=== PATIENT | female | born 1995 | race American Indian/Alaskan Native ===

== ENCOUNTER 2018-02-14 00:27 | Emergency (ER) | payer SELFPAY ==
[2018-02-14] MEDS ORDERED: NACL 0.9% 1000 ML 1,000 ML IV ONE ×2 (00:32→06:10)
[2018-02-14 01:05] LABS: Basophils % (Auto) 0.1 % (0.0-1.8); Eosinophils % (Auto) 0.5 % (0.0-4.3); Hematocrit 42.9 % (30.3-42.9); Hemoglobin 13.9 gm/dl (10.1-14.3); Lymphocytes % (Auto) 9.9 % (13.4-35.0); Mean Corpuscular HGB Conc 32 % (30-34); Mean Corpuscular Hemoglobin 28 pg (28-32); Mean Corpuscular Volume 87 fl (79-97); Monocytes # (Auto) 0.4 K/mm3 (0.0-0.8); Monocytes % (Auto) 3.8 % (0.0-7.3); Platelet Count 232 K/mm3 (140-440); Red Blood Count 4.93 M/mm3 (3.65-5.03); Red Cell Distribution Width 14.7 % (13.2-15.2)
[2018-02-14 01:24] LABS: Alanine Aminotransferase 12 units/L (7-56); BUN/Creatinine Ratio 9; Blood Urea Nitrogen 8 mg/dL (7-17); Calcium 10.2 mg/dL (8.4-10.2); Hemolysis Index 1
[2018-02-14] MEDS ORDERED: TORADOL IV ONE (03:06)
[2018-02-14] MEDS ORDERED: ZOFRAN IV ONE (03:06)
--- NOTE | 2018-02-14 03:12 | Emergency Department Report ---
ED Abdominal Pain HPI - General Chief Complaint: Abdominal Pain Stated Complaint: N/V/D Time Seen by Provider: 02/14/18 02:58 Source: patient Mode of arrival: Ambulatory Limitations: No Limitations - History of Present Illness Initial Comments: Patient is 22 years old female with no significant past medical history. Patient presented to the ER complaining of generalized abdominal pain, crampy nature associated with nausea vomiting and watery diarrhea. Patient stated that her symptoms started this after she ate the [place] food. She denied any fever or urinary symptoms. No other complaint. MD Complaint: abdominal pain -: Last night Location: diffuse Radiation: none Migration to: no migration Severity: moderate Quality: cramping Context: possible food poisoning - Related Data Allergies Allergy/AdvReac Type Severity Reaction Status Date / Time No Known Allergies Allergy Verified 02/14/18 00:30 ED Review of Systems ROS: Stated complaint: N/V/D Other details as noted in HPI Comment: All other systems reviewed and negative Constitutional: denies: chills, fever Cardiovascular: denies: chest pain, palpitations, dyspnea on exertion, orthopnea Gastrointestinal: abdominal pain, nausea, vomiting, diarrhea. denies: constipation, hematemesis, melena, hematochezia Genitourinary: denies: urgency, dysuria, frequency, hematuria Neurological: denies: headache, weakness ED Past Medical Hx - Past Medical History Previous Medical History?: No - Surgical History Past Surgical History?: No - Social History Smoking Status: Never Smoker Substance Use Type: None ED Physical Exam - General Limitations: No Limitations General appearance: alert, in no apparent distress - Head Head exam: Present: atraumatic - Eye Eye exam: Present: normal appearance - ENT ENT exam: Present: normal exam, normal orophraynx, mucous membranes moist - Neck Neck exam: Present: normal inspection, full ROM. Absent: tenderness, meningismus, lymphadenopathy - Respiratory Respiratory exam: Present: normal lung sounds bilaterally. Absent: respiratory distress, wheezes, rales, rhonchi, stridor, accessory muscle use, decreased breath sounds, prolonged expiratory - Cardiovascular Cardiovascular Exam: Present: regular rate, normal rhythm, normal heart sounds - GI/Abdominal GI/Abdominal exam: Present: soft, normal bowel sounds. Absent: distended, tenderness, guarding, rebound, rigid, organomegaly, mass, bruit, pulsatile mass , hernia - Extremities Exam Extremities exam: Present: normal inspection, full ROM, normal capillary refill - Neurological Exam Neurological exam: Present: alert, oriented X3, CN II-XII intact, normal gait, reflexes normal - Skin Skin exam: Present: warm, intact, normal color ED Course Vital Signs 02/14/18 02/14/18 02/14/18 00:39 02:32 06:06 Temperature 99.3 F 98.2 F Pulse Rate 102 H 86 80 Respiratory 16 18 18 Rate Blood Pressure 147/72 107/49 112/55 [Left] O2 Sat by Pulse 100 Oximetry - Reevaluation(s) Reevaluation #1: 02/14/18 06:10 Patient stated that she is feeling much better. No nausea or vomiting. No abdominal pain. ED Medical Decision Making - Lab Data Result diagrams: 02/14/18 00:35 02/14/18 00:35 Critical care attestation.: If time is entered above; I have spent that time in minutes in the direct care of this critically ill patient, excluding procedure time. ED Disposition Clinical Impression: Abdominal pain, Gastroenteritis, UTI (urinary tract infection) Disposition: DC-01 TO HOME OR SELFCARE Is pt being admited?: No Condition: Stable Instructions: Gastroenteritis (ED), Abdominal Pain (ED) Referrals: PRIMARY CARE, [Primary Care Provider] - 3-5 Days
[2018-02-14 05:44] LABS: Bilirubin,Urine Negative (Negative); Blood,Urine SM (Negative); Color,Urine Yellow (Yellow); Urobilinogen,Urine < 2.0 mg/dL (<2.0)
[2018-02-14 05:45] LABS: Bacteria,Urine 1+ /HPF (Negative); Mucus,Urine Few /HPF
[2018-02-14 06:07] VITALS: BP 112/55
== END 2018-02-14 07:02 | disposition home or self-care (01) ==
LOC: ED 00:27
DX: K52.9 Noninfective gastroenteritis and colitis, unspecified (principal); N39.0 Urinary tract infection, site not specified
CPT/HCPCS: 36415; 80053; 81001; 84703; 85025; 96361; 96374; 96375; 99283; J1885; J2405; J7030

== ENCOUNTER 2018-03-24 20:10 | Emergency (ER) | payer SELFPAY ==
[2018-03-24] MEDS ORDERED: NACL 0.9% 1000 ML 1,000 ML IV ONE ×2 (20:55→22:32)
[2018-03-24 21:16] LABS: Basophils % (Auto) 0.4 % (0.0-1.8); Eosinophils # (Auto) 0.2 K/mm3 (0.0-0.4); Eosinophils % (Auto) 2.8 % (0.0-4.3); Hematocrit 37.1 % (30.3-42.9); Hemoglobin 12.2 gm/dl (10.1-14.3); Lymphocytes # (Auto) 2.7 K/mm3 (1.2-5.4); Lymphocytes % (Auto) 32.8 % (13.4-35.0); Mean Corpuscular HGB Conc 33 % (30-34); Mean Corpuscular Hemoglobin 29 pg (28-32); Mean Corpuscular Volume 88 fl (79-97); Monocytes # (Auto) 0.6 K/mm3 (0.0-0.8); Platelet Count 196 K/mm3 (140-440); Red Blood Count 4.21 M/mm3 (3.65-5.03); Red Cell Distribution Width 14.9 % (13.2-15.2)
[2018-03-24 22:04] LABS: Alanine Aminotransferase 33 units/L (7-56); Albumin 4.5 g/dL (3.9-5); BUN/Creatinine Ratio 8; Blood Urea Nitrogen 6 mg/dL (7-17); Calcium 9.5 mg/dL (8.4-10.2); Hemolysis Index 2
[2018-03-24] MEDS ORDERED: ZOFRAN IV ONE (22:32)
[2018-03-24] MEDS ORDERED: PEPCID IV ONE (22:32)
[2018-03-24] MEDS ORDERED: TORADOL IV ONE (22:32)
[2018-03-24 22:48] LABS: Bacteria,Urine 1+ /HPF (Negative); Bilirubin,Urine NEG (Negative); Blood,Urine NEG (Negative); Color,Urine Yellow (Yellow); Mucus,Urine FEW /HPF; Protein,Urine <15 mg/dL mg/dL (Negative)
--- NOTE | 2018-03-24 23:36 | Cat Scan Report ---
FINAL REPORT EXAM: CT ABDOMEN PELVIS W CON HISTORY: n,v, epigatric, ruq, rlq tenderness COMPARISON: None available. TECHNIQUE: Contiguous axial images were obtained. Additional sagittal and coronal reformatted images were obtained. Administration of IV contrast given per institution protocol. Images submitted for interpretation. 100 cc Omnipaque 300. FINDINGS: Lung bases are clear. No calcified gallstones or biliary dilatation. Liver, spleen, pancreas and adrenal glands are grossly unremarkable. No solid renal lesion. No hydronephrosis. Aorta and IVC normal in caliber. The appendix is gas-filled and normal in caliber measuring 5-6 millimeters in diameter. No adjacent fat stranding or fluid. Large and small bowel loops normal in caliber. Urinary bladder, uterus and ovaries are grossly unremarkable. No free fluid or lymphadenopathy in the pelvic cavity. Lumbar vertebral body heights are preserved. Bony pelvis is grossly intact. IMPRESSION: No focal inflammatory changes of the abdomen and pelvis. Large and small bowel loops normal in caliber. The appendix is normal in caliber. Moderate stool in the colon.
[2018-03-25] VITALS: BP 105/64
--- NOTE | 2018-03-25 01:00 | Emergency Department Report ---
ED Abdominal Pain HPI - General Chief Complaint: Abdominal Pain Stated Complaint: VOMITING WEAK ABD PAIN POSS FAST HEART BEAT Time Seen by Provider: 03/24/18 21:51 Source: patient Mode of arrival: Ambulatory Limitations: No Limitations - History of Present Illness Initial Comments: 22-year-old female with a past medical history of anemia presents to the hospital. Generalized weakness, body aches, and abdominal pain 1 week. Patient states she was recently incarcerated and released 3 days ago. While incarcerated she accidentally used another inmate's toothbrush and has been feeling sick ever since. No complaints of documented fever, dysuria, diarrhea, or cough. He complains of pain to the right side of her head. She's had nausea and vomiting for the last 2 days. Pain is maximum at the epigastric area , rated 7/10 intensity and worse with palpation. Severity scale (0 -10): 6 - Related Data Previous Rx's Medication Instructions Recorded Last Taken Type Ciprofloxacin HCl [Ciprofloxacin 500 mg PO Q12H #14 tab 02/14/18 Unknown Rx TAB] Ondansetron [Zofran Odt] 4 mg PO Q8HR PRN #14 tab.rapdis 02/14/18 Unknown Rx Famotidine [Pepcid] 20 mg PO BID #30 tablet 03/25/18 Unknown Rx Mag Hydrox/Aluminum Hyd/Simeth 20 ml PO QID PRN #1 bottle 03/25/18 Unknown Rx [Maalox Advanced Suspension] Ondansetron [Zofran Odt] 4 mg PO Q8HR PRN #20 tab.rapdis 03/25/18 Unknown Rx traMADol [Ultram 50 MG tab] 50 mg PO Q6HR PRN #20 tablet 03/25/18 Unknown Rx Allergies Allergy/AdvReac Type Severity Reaction Status Date / Time No Known Allergies Allergy Verified 02/14/18 00:30 ED Review of Systems ROS: Stated complaint: VOMITING WEAK ABD PAIN POSS FAST HEART BEAT Other details as noted in HPI Comment: All other systems reviewed and negative ED Past Medical Hx - Past Medical History Previous Medical History?: Yes Additional medical history: anemic - Surgical History Past Surgical History?: No - Social History Smoking Status: Current Every Day Smoker Substance Use Type: Alcohol, Cocaine, Marijuana - Medications Home Medications: Home Medications Medication Instructions Recorded Confirmed Last Taken Type Ciprofloxacin HCl [Ciprofloxacin 500 mg PO Q12H #14 tab 02/14/18 Unknown Rx TAB] Ondansetron [Zofran Odt] 4 mg PO Q8HR PRN #14 tab.rapdis 02/14/18 Unknown Rx Famotidine [Pepcid] 20 mg PO BID #30 tablet 03/25/18 Unknown Rx Mag Hydrox/Aluminum Hyd/Simeth 20 ml PO QID PRN #1 bottle 03/25/18 Unknown Rx [Maalox Advanced Suspension] Ondansetron [Zofran Odt] 4 mg PO Q8HR PRN #20 tab.rapdis 03/25/18 Unknown Rx traMADol [Ultram 50 MG tab] 50 mg PO Q6HR PRN #20 tablet 03/25/18 Unknown Rx ED Physical Exam - General Limitations: No Limitations - Other Other exam information: General: No limitations, patient is alert in no acute distress Head exam: Atraumatic, normocephalic Eyes exam: Normal appearance, pupils equal reactive to light, extraocular movements intact ENT: Moist mucous membrane, normal oropharynx, no pharyngeal exudates Neck exam: Normal inspection, full range of motion, no meningismus nontender Respiratory exam: Clear to auscultation bilateral, no wheezes, rales, crackles Cardiovascular: Normal rate and rhythm, normal heart sounds Abdomen: Soft, nondistended, epigastric, right upper quadrant, and right lower quadrant tenderness, with normal bowel sounds, no rebound, or guarding Extremity: Full range of motion normal inspection no deformity Back: Normal Inspection, full range of motion, no tenderness Neurologic: Alert, oriented x3, cranial nerves intact, no motor or sensory deficit Psychiatric: normal affect, normal mood Skin: Warm, dry, intact ED Course Vital Signs 03/24/18 03/24/18 03/25/18 20:16 22:45 00:01 Temperature 98.7 F Pulse Rate 75 Respiratory 18 18 Rate Blood Pressure 116/64 105/64 O2 Sat by Pulse 100 100 98 Oximetry ED Medical Decision Making - Lab Data Result diagrams: 03/24/18 21:00 03/24/18 21:00 Lab Results 03/24/18 03/24/18 03/24/18 Range/Units 21:00 21:00 21:58 WBC 8.1 (4.5-11.0) K/mm3 RBC 4.21 (3.65-5.03) M/mm3 Hgb 12.2 (10.1-14.3) gm/dl Hct 37.1 (30.3-42.9) % MCV 88 (79-97) fl MCH 29 (28-32) pg MCHC 33 (30-34) % RDW 14.9 (13.2-15.2) % Plt Count 196 (140-440) K/mm3 Lymph % (Auto) 32.8 (13.4-35.0) % Stewart % (Auto) 7.0 (0.0-7.3) % Eos % (Auto) 2.8 (0.0-4.3) % Baso % (Auto) 0.4 (0.0-1.8) % Lymph # 2.7 (1.2-5.4) K/mm3 Stewart # 0.6 (0.0-0.8) K/mm3 Eos # 0.2 (0.0-0.4) K/mm3 Baso # 0.0 (0.0-0.1) K/mm3 Seg Neutrophils % 57.0 (40.0-70.0) % Seg Neutrophils # 4.6 (1.8-7.7) K/mm3 Sodium 144 (137-145) mmol/L Potassium 4.2 (3.6-5.0) mmol/L Chloride 106.2 (98-107) mmol/L Carbon Dioxide 26 (22-30) mmol/L Anion Gap 16 mmol/L BUN 6 L (7-17) mg/dL Creatinine 0.8 (0.7-1.2) mg/dL Estimated GFR > 60 ml/min BUN/Creatinine Ratio 8 % Glucose 92 (65-100) mg/dL Calcium 9.5 (8.4-10.2) mg/dL Total Bilirubin 0.40 (0.1-1.2) mg/dL AST 26 (5-40) units/L ALT 33 (7-56) units/L Alkaline Phosphatase 122 (35-129) units/L Total Protein 6.9 (6.3-8.2) g/dL Albumin 4.5 (3.9-5) g/dL Albumin/Globulin Ratio 1.9 % Lipase (13-60) units/L HCG, Quant < 2 (0-4) mIU/mL Urine Color (Yellow) Urine Turbidity (Clear) Urine pH (5.0-7.0) Ur Specific [place] (1.003-1.030) Urine Protein (Negative) mg/dL Urine Glucose (UA) (Negative) mg/dL Urine Ketones (Negative) mg/dL Urine Blood (Negative) Urine Nitrite (Negative) Urine Bilirubin (Negative) Urine Urobilinogen (<2.0) mg/dL Ur Leukocyte Esterase (Negative) Urine WBC (Auto) (0.0-6.0) /HPF Urine RBC (Auto) (0.0-6.0) /HPF U Epithel Cells (Auto) (0-13.0) /HPF Urine Bacteria (Auto) (Negative) /HPF Urine Mucus /HPF 03/24/18 03/24/18 Range/Units 22:12 22:22 WBC (4.5-11.0) K/mm3 RBC (3.65-5.03) M/mm3 Hgb (10.1-14.3) gm/dl Hct (30.3-42.9) % MCV (79-97) fl MCH (28-32) pg MCHC (30-34) % RDW (13.2-15.2) % Plt Count (140-440) K/mm3 Lymph % (Auto) (13.4-35.0) % Stewart % (Auto) (0.0-7.3) % Eos % (Auto) (0.0-4.3) % Baso % (Auto) (0.0-1.8) % Lymph # (1.2-5.4) K/mm3 Stewart # (0.0-0.8) K/mm3 Eos # (0.0-0.4) K/mm3 Baso # (0.0-0.1) K/mm3 Seg Neutrophils % (40.0-70.0) % Seg Neutrophils # (1.8-7.7) K/mm3 Sodium (137-145) mmol/L Potassium (3.6-5.0) mmol/L Chloride (98-107) mmol/L Carbon Dioxide (22-30) mmol/L Anion Gap mmol/L BUN (7-17) mg/dL Creatinine (0.7-1.2) mg/dL Estimated GFR ml/min BUN/Creatinine Ratio % Glucose (65-100) mg/dL Calcium (8.4-10.2) mg/dL Total Bilirubin (0.1-1.2) mg/dL AST (5-40) units/L ALT (7-56) units/L Alkaline Phosphatase (35-129) units/L Total Protein (6.3-8.2) g/dL Albumin (3.9-5) g/dL Albumin/Globulin Ratio % Lipase 19 (13-60) units/L HCG, Quant (0-4) mIU/mL Urine Color Yellow (Yellow) Urine Turbidity Clear (Clear) Urine pH 6.0 (5.0-7.0) Ur Specific [place] 1.020 (1.003-1.030) Urine Protein <15 mg/dl (Negative) mg/dL Urine Glucose (UA) Neg (Negative) mg/dL Urine Ketones Neg (Negative) mg/dL Urine Blood Neg (Negative) Urine Nitrite Neg (Negative) Urine Bilirubin Neg (Negative) Urine Urobilinogen 2.0 (<2.0) mg/dL Ur Leukocyte Esterase Tr (Negative) Urine WBC (Auto) 3.0 (0.0-6.0) /HPF Urine RBC (Auto) 2.0 (0.0-6.0) /HPF U Epithel Cells (Auto) 11.0 (0-13.0) /HPF Urine Bacteria (Auto) 1+ (Negative) /HPF Urine Mucus Few /HPF - Radiology Data Radiology results: report reviewed FINAL REPORT EXAM: CT ABDOMEN PELVIS W CON HISTORY: n,v, epigatric, ruq, rlq tenderness COMPARISON: None available. TECHNIQUE: Contiguous axial images were obtained. Additional sagittal and coronal reformatted images were obtained. Administration of IV contrast given per institution protocol. Images submitted for interpretation. 100 cc Omnipaque 300. FINDINGS: Lung bases are clear. No calcified gallstones or biliary dilatation. Liver, spleen, pancreas and adrenal glands are grossly unremarkable. No solid renal lesion. No hydronephrosis. Aorta and IVC normal in caliber. The appendix is gas-filled and normal in caliber measuring 5-6 millimeters in diameter. No adjacent fat stranding or fluid. Large and small bowel loops normal in caliber. Urinary bladder, uterus and ovaries are grossly unremarkable. No free fluid or lymphadenopathy in the pelvic cavity. Lumbar vertebral body heights are preserved. Bony pelvis is grossly intact. IMPRESSION: No focal inflammatory changes of the abdomen and pelvis. Large and small bowel loops normal in caliber. The appendix is normal in caliber. Moderate stool in the colon. - Medical Decision Making Patient treated in the ED with Toradol, Pepcid, Zofran, and normal saline CT abdomen and pelvis negative for acute abnormality Labs, UA, urine unremarkable Patient was treated for a viral gastritis and sent home with symptomatic treatment prior to d/c pt states she still had residual abd pain therefore Maalox and viscous lidocaine provided. - Differential Diagnosis appendicitis, biliary colic, viral syndrome, UTI Critical Care Time: No Critical care attestation.: If time is entered above; I have spent that time in minutes in the direct care of this critically ill patient, excluding procedure time. ED Disposition Clinical Impression: Viral gastritis Disposition: TO HOME OR SELFCARE Is pt being admited?: No Does the pt Need Aspirin: No Condition: Stable Instructions: Acute Nausea and Vomiting (ED) Additional Instructions: Take the medication as prescribed. Follow-up with a primary care doctor or clinic for further evaluation. Please return if symptoms worsen as indicated by your discharge instructions Prescriptions: Famotidine [Pepcid] 20 mg PO BID #30 tablet Mag Hydrox/Aluminum Hyd/Simeth [Maalox Advanced Suspension] 20 ml PO QID PRN #1 bottle PRN Reason: Indigestion Ondansetron [Zofran Odt] 4 mg PO Q8HR PRN #20 tab.rapdis PRN Reason: Nausea And Vomiting traMADol [Ultram 50 MG tab] 50 mg PO Q6HR PRN #20 tablet PRN Reason: Pain Referrals: CHRISTIANO SYKES MD [Primary Care Provider] - 3-5 Days [facility] [Provider Group] - 3-5 Days JULIETH CAM MD [Staff Physician] - 3-5 Days Time of Disposition: 01:04
[2018-03-25] MEDS ORDERED: ALUM-MAG HYDROX-SIMETH 200-200-20MG/5ML PO ONE (01:02)
[2018-03-25] MEDS ORDERED: LIDOCAINE VISCOUS 2% PO ONE (01:02)
== END 2018-03-25 01:33 | disposition home or self-care (01) ==
LOC: ED 20:10
DX: A08.4 Viral intestinal infection, unspecified (principal); F17.200 Nicotine dependence, unspecified, uncomplicated; F12.10 Cannabis abuse, uncomplicated; Z86.2 Personal history of diseases of the blood and blood-forming organs and certain disorders involving the immune mechanism
CPT/HCPCS: 36415; 74177; 80053; 81001; 83690; 84702; 85025; 96361; 96374; 96375; 99284; J1885; J2405; J7030; Q9967

== ENCOUNTER 2018-06-05 17:40 | Emergency (ER) | payer MEDICAID ==
--- NOTE | 2018-06-05 18:53 | Emergency Department Report ---
ED General Adult HPI - General Chief complaint: Urogenital-Female Stated complaint: CHECK UP Time Seen by Provider: 06/05/18 18:49 Source: patient Mode of arrival: Ambulatory Limitations: No Limitations - History of Present Illness Initial comments: 22-year-old -Citizen Of [place] female comes to the emergency room requesting STD check. Patient reports that she was notified by her sexual partner that he had Trichomonas. Patient denies any abdominal pain no vaginal discharge or vaginal bleeding. Patient reports that he spent about 45 days since she possibly can been exposed. Patient is sexually active with men with no protection. Treatments Prior to Arrival: none - Related Data Previous Rx's Medication Instructions Recorded Last Taken Type Ciprofloxacin HCl [Ciprofloxacin 500 mg PO Q12H #14 tab 02/14/18 Unknown Rx TAB] Ondansetron [Zofran Odt] 4 mg PO Q8HR PRN #14 tab.rapdis 02/14/18 Unknown Rx Famotidine [Pepcid] 20 mg PO BID #30 tablet 03/25/18 Unknown Rx Mag Hydrox/Aluminum Hyd/Simeth 20 ml PO QID PRN #1 bottle 03/25/18 Unknown Rx [Maalox Advanced Suspension] Ondansetron [Zofran Odt] 4 mg PO Q8HR PRN #20 tab.rapdis 03/25/18 Unknown Rx traMADol [Ultram 50 MG tab] 50 mg PO Q6HR PRN #20 tablet 03/25/18 Unknown Rx metroNIDAZOLE [Flagyl] 2,000 mg PO ONCE #4 tab 06/05/18 Unknown Rx Allergies Allergy/AdvReac Type Severity Reaction Status Date / Time No Known Allergies Allergy Verified 02/14/18 00:30 ED Review of Systems ROS: Stated complaint: CHECK UP Other details as noted in HPI Comment: All other systems reviewed and negative ED Past Medical Hx - Past Medical History Previous Medical History?: Yes Additional medical history: anemic - Surgical History Past Surgical History?: No - Social History Smoking Status: Current Every Day Smoker Substance Use Type: Marijuana - Medications Home Medications: Home Medications Medication Instructions Recorded Confirmed Last Taken Type Ciprofloxacin HCl [Ciprofloxacin 500 mg PO Q12H #14 tab 02/14/18 Unknown Rx TAB] Ondansetron [Zofran Odt] 4 mg PO Q8HR PRN #14 tab.rapdis 02/14/18 Unknown Rx Famotidine [Pepcid] 20 mg PO BID #30 tablet 03/25/18 Unknown Rx Mag Hydrox/Aluminum Hyd/Simeth 20 ml PO QID PRN #1 bottle 03/25/18 Unknown Rx [Maalox Advanced Suspension] Ondansetron [Zofran Odt] 4 mg PO Q8HR PRN #20 tab.rapdis 03/25/18 Unknown Rx traMADol [Ultram 50 MG tab] 50 mg PO Q6HR PRN #20 tablet 03/25/18 Unknown Rx metroNIDAZOLE [Flagyl] 2,000 mg PO ONCE #4 tab 06/05/18 Unknown Rx ED Physical Exam - General Limitations: No Limitations General appearance: alert, in no apparent distress - Head Head exam: Present: atraumatic, normocephalic - Eye Eye exam: Present: EOMI - Respiratory Respiratory exam: Present: normal lung sounds bilaterally. Absent: respiratory distress - Cardiovascular Cardiovascular Exam: Present: regular rate, normal rhythm. Absent: systolic murmur, diastolic murmur, rubs, gallop - GI/Abdominal GI/Abdominal exam: Present: soft, normal bowel sounds. Absent: distended ED Course Vital Signs 06/05/18 17:45 Temperature 98.1 F Pulse Rate 106 H Respiratory 18 Rate Blood Pressure 132/69 O2 Sat by Pulse 98 Oximetry Critical care attestation.: If time is entered above; I have spent that time in minutes in the direct care of this critically ill patient, excluding procedure time. ED Disposition Clinical Impression: Exposure to trichomonas Disposition: DC-01 TO HOME OR SELFCARE Is pt being admited?: No Does the pt Need Aspirin: No Condition: Stable Instructions: Safe Sex (ED), Sexually Transmitted Diseases (ED) Additional Instructions: Please take 4 pills at once. Follow-up at the health department for further evaluation for HIV, herpes, syphilis, hepatitis, gonorrhea and chlamydia. Prescriptions: metroNIDAZOLE [Flagyl] 2,000 mg PO ONCE #4 tab Referrals: [facility] [Outside] - 3-5 Days [facility] [Outside] - 3[facility]5 Days [facility] - [facility] [Outside] - 3-5 Days
[2018-06-05 19:04] VITALS: BP 115/72
[2018-06-05 19:11] LABS: Bacteria,Urine 1+ /HPF (Negative); Bilirubin,Urine NEG (Negative); Blood,Urine NEG (Negative); Color,Urine Yellow (Yellow); Mucus,Urine FEW /HPF; Protein,Urine <15 mg/dL mg/dL (Negative); Urobilinogen,Urine < 2.0 mg/dL (<2.0)
== END 2018-06-05 19:02 | disposition home or self-care (01) ==
LOC: ED 17:40
DX: A59.9 Trichomoniasis, unspecified (principal); F17.200 Nicotine dependence, unspecified, uncomplicated; Z86.2 Personal history of diseases of the blood and blood-forming organs and certain disorders involving the immune mechanism
CPT/HCPCS: 81001; 99283

== ENCOUNTER 2018-09-22 19:22 | Emergency (ER) | payer MEDICAID ==
[2018-09-22] MEDS ORDERED: NACL 0.9% 1000 ML 1,000 ML IV ONE (19:50)
[2018-09-22 20:14] LABS: Basophils # (Auto) 0.1 K/mm3 (0.0-0.1); Basophils % (Auto) 0.7 % (0.0-1.8); Eosinophils # (Auto) 0.1 K/mm3 (0.0-0.4); Eosinophils % (Auto) 0.7 % (0.0-4.3); Hematocrit 38.2 % (30.3-42.9); Hemoglobin 12.5 gm/dl (10.1-14.3); Lymphocytes # (Auto) 3.9 K/mm3 (1.2-5.4); Lymphocytes % (Auto) 40.1 % (13.4-35.0); Mean Corpuscular HGB Conc 33 % (30-34); Mean Corpuscular Volume 85 fl (79-97); Monocytes # (Auto) 0.5 K/mm3 (0.0-0.8); Monocytes % (Auto) 5.1 % (0.0-7.3); Platelet Count 249 K/mm3 (140-440); Red Blood Count 4.51 M/mm3 (3.65-5.03); Red Cell Distribution Width 14.6 % (13.2-15.2)
[2018-09-22 20:25] LABS: Bilirubin,Urine NEG (Negative); Blood,Urine SM (Negative); Color,Urine Yellow (Yellow); Mucus,Urine FEW /HPF; Protein,Urine <15 mg/dL mg/dL (Negative); Urobilinogen,Urine < 2.0 mg/dL (<2.0)
[2018-09-22 20:33] LABS: Alanine Aminotransferase 11 units/L (7-56); Albumin 4.6 g/dL (3.9-5); BUN/Creatinine Ratio 30; Blood Urea Nitrogen 12 mg/dL (7-17); Calcium 9.6 mg/dL (8.4-10.2); Hemolysis Index 5
[2018-09-22] MEDS ORDERED: LEVSIN SL SL ONE (21:44)
[2018-09-22] MEDS ORDERED: LEVSIN SL ONE (21:45)
[2018-09-22] MEDS ORDERED: ZOFRAN ODT PO STA (21:54)
[2018-09-22] MEDS ORDERED: ZOFRAN ODT ONE (21:57)
--- NOTE | 2018-09-22 22:51 | Emergency Department Report ---
ED N/V/D HPI - General Chief complaint: Abdominal Pain Stated complaint: ABD PAIN/V/D Time Seen by Provider: 09/22/18 21:30 Source: patient Mode of arrival: Ambulatory Limitations: No Limitations - History of Present Illness MD complaint: nausea, vomiting, diarrhea Description of Vomiting: food contents Description of Diarrhea: water Associated Abdominal Pain: Yes Location: diffuse Radiation: none Severity: mild Quality: cramping Consistency: constant Improves with: none Worsens with: eating Context: possible food poisoning (states some six-day old collar greens with a type of meat) Associated Symptoms: chest pain, cough, diaphoresis, loss of appetite, nausea/vomiting, other (reports having 45 diarrhea episodes since this morning. Also a couple vomiting episodes). denies: malaise, shortness of breath, syncope, weakness - Related Data Previous Rx's Medication Instructions Recorded Last Taken Type Ciprofloxacin HCl [Ciprofloxacin 500 mg PO Q12H #14 tab 02/14/18 Unknown Rx TAB] Ondansetron [Zofran Odt] 4 mg PO Q8HR PRN #14 tab.rapdis 02/14/18 Unknown Rx Famotidine [Pepcid] 20 mg PO BID #30 tablet 03/25/18 Unknown Rx Mag Hydrox/Aluminum Hyd/Simeth 20 ml PO QID PRN #1 bottle 03/25/18 Unknown Rx [Maalox Advanced Suspension] Ondansetron [Zofran Odt] 4 mg PO Q8HR PRN #20 tab.rapdis 03/25/18 Unknown Rx traMADol [Ultram 50 MG tab] 50 mg PO Q6HR PRN #20 tablet 03/25/18 Unknown Rx metroNIDAZOLE [Flagyl] 2,000 mg PO ONCE #4 tab 06/05/18 Unknown Rx Hyoscyamine Subl [Levsin Sl 0.125 0.125 mg SL Q6HR PRN #20 tab 09/22/18 Unknown Rx TAB] Ondansetron [Zofran ODT TAB] 8 mg PO Q12HR #14 tab.rapdis 09/22/18 Unknown Rx Allergies Allergy/AdvReac Type Severity Reaction Status Date / Time No Known Allergies Allergy Verified 02/14/18 00:30 ED Review of Systems ROS: Stated complaint: ABD PAIN/V/D Other details as noted in HPI Constitutional: denies: chills, fever Eyes: denies: eye pain, eye discharge, vision change ENT: denies: ear pain, throat pain Respiratory: denies: cough, shortness of breath, wheezing Cardiovascular: denies: chest pain, palpitations Endocrine: no symptoms reported Gastrointestinal: nausea, vomiting, diarrhea. denies: abdominal pain Genitourinary: denies: urgency, dysuria, discharge Musculoskeletal: denies: back pain, joint swelling, arthralgia Skin: denies: rash, lesions Neurological: denies: headache, weakness, paresthesias Psychiatric: denies: anxiety, depression Hematological/Lymphatic: denies: easy bleeding, easy bruising ED Past Medical Hx - Past Medical History Previous Medical History?: Yes Additional medical history: anemic, PUD - Surgical History Past Surgical History?: No - Social History Smoking Status: Current Every Day Smoker Substance Use Type: None - Medications Home Medications: Home Medications Medication Instructions Recorded Confirmed Last Taken Type Ciprofloxacin HCl [Ciprofloxacin 500 mg PO Q12H #14 tab 02/14/18 Unknown Rx TAB] Ondansetron [Zofran Odt] 4 mg PO Q8HR PRN #14 tab.rapdis 02/14/18 Unknown Rx Famotidine [Pepcid] 20 mg PO BID #30 tablet 03/25/18 Unknown Rx Mag Hydrox/Aluminum Hyd/Simeth 20 ml PO QID PRN #1 bottle 03/25/18 Unknown Rx [Maalox Advanced Suspension] Ondansetron [Zofran Odt] 4 mg PO Q8HR PRN #20 tab.rapdis 03/25/18 Unknown Rx traMADol [Ultram 50 MG tab] 50 mg PO Q6HR PRN #20 tablet 03/25/18 Unknown Rx metroNIDAZOLE [Flagyl] 2,000 mg PO ONCE #4 tab 06/05/18 Unknown Rx Hyoscyamine Subl [Levsin Sl 0.125 0.125 mg SL Q6HR PRN #20 tab 09/22/18 Unknown Rx TAB] Ondansetron [Zofran ODT TAB] 8 mg PO Q12HR #14 tab.rapdis 09/22/18 Unknown Rx ED Physical Exam - General Limitations: No Limitations General appearance: alert, in no apparent distress - Head Head exam: Present: atraumatic, normocephalic - Eye Eye exam: Present: normal appearance, PERRL, EOMI Pupils: Present: normal accommodation - ENT ENT exam: Present: normal exam, mucous membranes moist - Neck Neck exam: Present: normal inspection - Respiratory Respiratory exam: Present: normal lung sounds bilaterally. Absent: respiratory distress, wheezes, rales, rhonchi, stridor, chest wall tenderness, decreased breath sounds - Cardiovascular Cardiovascular Exam: Present: regular rate, normal rhythm, normal heart sounds. Absent: bradycardia, tachycardia, systolic murmur, diastolic murmur, rubs, gallop - GI/Abdominal GI/Abdominal exam: Present: soft, normal bowel sounds, other (no tenderness at McBurney's, no Teixeira's sign, no Rovsing, no goiter, no Shoaib). Absent: distended, tenderness, guarding, rebound, diminished bowel sounds, hyperactive bowel sounds, bruit, pulsatile mass - Extremities Exam Extremities exam: Present: normal inspection, full ROM, normal capillary refill. Absent: tenderness, pedal edema, joint swelling - Back Exam Back exam: Present: normal inspection - Neurological Exam Neurological exam: Present: alert, oriented X3 - Psychiatric Psychiatric exam: Present: normal affect, normal mood - Skin Skin exam: Present: warm, dry, intact, normal color. Absent: rash ED Course Vital Signs 09/22/18 19:44 Temperature 98.2 F Pulse Rate 79 Respiratory 16 Rate Blood Pressure 123/77 [Left] O2 Sat by Pulse 99 Oximetry ED Medical Decision Making - Lab Data Result diagrams: 09/22/18 20:02 09/22/18 20:02 - Medical Decision Making 22-year-old female with likely food poisoning due to old, complains with unknown weakness. Stable at this present time with normal vitals. Able to tolerate orals. Minimal abdominal discomfort. No episodes of vomiting or diarrhea during her ER visit, which is within been over 2 hours. She is responded well to the medication provided was in almost a month with the same medications advisor on the natural progression of food poisoning and also gave her assessment on what to expect as far as improvement Critical care attestation.: If time is entered above; I have spent that time in minutes in the direct care of this critically ill patient, excluding procedure time. ED Disposition Clinical Impression: Gastroenteritis Disposition: DC-01 TO HOME OR SELFCARE Is pt being admited?: No Does the pt Need Aspirin: No Condition: Stable Instructions: Gastroenteritis (ED), Acute Nausea and Vomiting (ED), Food Poisoning (ED), Abdominal Pain (ED) Prescriptions: Hyoscyamine Subl [Levsin Sl 0.125 TAB] 0.125 mg SL Q6HR PRN #20 tab PRN Reason: abdominal cramps and spasms Ondansetron [Zofran ODT TAB] 8 mg PO Q12HR #14 tab.isidro Referrals: SULEMA DODGE JR, MD [Primary Care Provider] - 3-5 Days
[2018-09-22 23:37] VITALS: BP 128/76
== END 2018-09-22 23:36 | disposition home or self-care (01) ==
LOC: ED 19:22
DX: K52.9 Noninfective gastroenteritis and colitis, unspecified (principal)
CPT/HCPCS: 36415; 80053; 81001; 83690; 84703; 85025; 99283; Q0162

== ENCOUNTER 2018-11-22 12:23 | Emergency (ER) | payer SELFPAY ==
--- NOTE | 2018-11-22 13:51 | Emergency Department Report ---
Blank Doc - Documentation Documentation: 23 y o f presents with abd pain with vaginal d/c x 2 days non tender abd ua/wet prep ordered
[2018-11-22 15:24] LABS: Bacteria,Urine 1+ /HPF (Negative); Bilirubin,Urine NEG (Negative); Blood,Urine NEG (Negative); Color,Urine Yellow (Yellow); Mucus,Urine FEW /HPF; Protein,Urine <15 mg/dL mg/dL (Negative); Urobilinogen,Urine < 2.0 mg/dL (<2.0)
[2018-11-22 15:37] LABS: HCG Qualitative,Urine Negative (Negative)
[2018-11-22] MEDS ORDERED: ROCEPHIN IM ONE (16:15)
[2018-11-22] MEDS ORDERED: XYLOCAINE 1% MPF 5 mL INFILTRATI ONE (16:15)
[2018-11-22] MEDS ORDERED: ZITHROMAX PO ONE (16:15)
--- NOTE | 2018-11-22 16:29 | Emergency Department Report ---
ED Female HPI - General Chief complaint: Medical Clearance Stated complaint: STD CHECK Time Seen by Provider: 11/22/18 13:50 Source: patient Mode of arrival: Ambulatory Limitations: No Limitations - History of Present Illness Initial comments: This is a 23-year-old female nontoxic, well nourished in appearance, no acute signs of distress presents to the ED with c/o of vaginal discharge. Patient denies any vaginal pain or swelling. Patient denies any vaginal ulcers or lesions. Patient denies any pelvic pain or abdominal pain. Patient denies any nausea, vomiting, chest pain, shortness of breathe, fever, chills, headache, back pain, numbness, tingling, stiff neck. Patient denies any urinary symptoms. Patient denies any allergies or PMH. MD Complaint: vaginal discharge -: days(s) (2) Radiation: non-radiating Severity scale (0 -10): 0 Improves with: none Worsens with: none Are you Now?: No Associated Symptoms: vaginal discharge. denies: vaginal bleeding, abdominal pain, nausea/vomiting, fever/chills, headaches, loss of appetite, dysuria, hematuria, rash, seizure, shortness of breath, syncope, weakness - Related Data Sexually active: Yes Previous Rx's Medication Instructions Recorded Last Taken Type Ciprofloxacin HCl [Ciprofloxacin 500 mg PO Q12H #14 tab 02/14/18 Unknown Rx TAB] Ondansetron [Zofran Odt] 4 mg PO Q8HR PRN #14 tab.rapdis 02/14/18 Unknown Rx Famotidine [Pepcid] 20 mg PO BID #30 tablet 03/25/18 Unknown Rx Mag Hydrox/Aluminum Hyd/Simeth 20 ml PO QID PRN #1 bottle 03/25/18 Unknown Rx [Maalox Advanced Suspension] Ondansetron [Zofran Odt] 4 mg PO Q8HR PRN #20 tab.rapdis 03/25/18 Unknown Rx traMADol [Ultram 50 MG tab] 50 mg PO Q6HR PRN #20 tablet 03/25/18 Unknown Rx metroNIDAZOLE [Flagyl] 2,000 mg PO ONCE #4 tab 06/05/18 Unknown Rx Hyoscyamine Subl [Levsin Sl 0.125 0.125 mg SL Q6HR PRN #20 tab 09/22/18 Unknown Rx TAB] Ondansetron [Zofran ODT TAB] 8 mg PO Q12HR #14 tab.rapdis 09/22/18 Unknown Rx Sulfamethoxazole/Trimethoprim 1 each PO BID #14 tablet 11/22/18 Unknown Rx [Bactrim DS TAB] metroNIDAZOLE [Flagyl] 500 mg PO Q8HR #14 tablet 11/22/18 Unknown Rx Allergies Allergy/AdvReac Type Severity Reaction Status Date / Time No Known Allergies Allergy Verified 11/22/18 12:26 ED Review of Systems ROS: Stated complaint: STD CHECK Other details as noted in HPI Constitutional: denies: chills, fever Eyes: denies: eye pain, eye discharge, vision change ENT: denies: ear pain, throat pain Respiratory: denies: cough, shortness of breath, wheezing Cardiovascular: denies: chest pain, palpitations Endocrine: no symptoms reported Gastrointestinal: denies: abdominal pain, nausea, diarrhea Genitourinary: discharge. denies: urgency, dysuria, frequency, hematuria, abnormal menses Musculoskeletal: denies: back pain, joint swelling, arthralgia Skin: denies: rash, lesions Neurological: denies: headache, weakness, paresthesias Psychiatric: denies: anxiety, depression Hematological/Lymphatic: denies: easy bleeding, easy bruising ED Past Medical Hx - Past Medical History Previous Medical History?: Yes Additional medical history: anemic, PUD - Surgical History Past Surgical History?: No - Social History Smoking Status: Never Smoker - Medications Home Medications: Home Medications Medication Instructions Recorded Confirmed Last Taken Type Ciprofloxacin HCl [Ciprofloxacin 500 mg PO Q12H #14 tab 02/14/18 Unknown Rx TAB] Ondansetron [Zofran Odt] 4 mg PO Q8HR PRN #14 tab.rapdis 02/14/18 Unknown Rx Famotidine [Pepcid] 20 mg PO BID #30 tablet 03/25/18 Unknown Rx Mag Hydrox/Aluminum Hyd/Simeth 20 ml PO QID PRN #1 bottle 03/25/18 Unknown Rx [Maalox Advanced Suspension] Ondansetron [Zofran Odt] 4 mg PO Q8HR PRN #20 tab.rapdis 03/25/18 Unknown Rx traMADol [Ultram 50 MG tab] 50 mg PO Q6HR PRN #20 tablet 03/25/18 Unknown Rx metroNIDAZOLE [Flagyl] 2,000 mg PO ONCE #4 tab 06/05/18 Unknown Rx Hyoscyamine Subl [Levsin Sl 0.125 0.125 mg SL Q6HR PRN #20 tab 09/22/18 Unknown Rx TAB] Ondansetron [Zofran ODT TAB] 8 mg PO Q12HR #14 tab.rapdis 09/22/18 Unknown Rx Sulfamethoxazole/Trimethoprim 1 each PO BID #14 tablet 11/22/18 Unknown Rx [Bactrim DS TAB] metroNIDAZOLE [Flagyl] 500 mg PO Q8HR #14 tablet 11/22/18 Unknown Rx ED Physical Exam - General Limitations: No Limitations General appearance: alert, in no apparent distress - Head Head exam: Present: atraumatic, normocephalic - Eye Eye exam: Present: normal appearance - Neck Neck exam: Present: normal inspection, full ROM. Absent: tenderness, meningismus, lymphadenopathy - Respiratory Respiratory exam: Present: normal lung sounds bilaterally. Absent: respiratory distress, wheezes, rales, rhonchi, stridor, chest wall tenderness, accessory muscle use, decreased breath sounds, prolonged expiratory - Cardiovascular Cardiovascular Exam: Present: regular rate, normal rhythm, normal heart sounds. Absent: bradycardia, tachycardia, irregular rhythm, systolic murmur, diastolic murmur, rubs, gallop - GI/Abdominal GI/Abdominal exam: Present: soft, normal bowel sounds. Absent: distended, tenderness, guarding, rebound, rigid, diminished bowel sounds - External exam: Present: normal external exam, other (welder metal fab Jenni RN present on exam). Absent: erythema, swelling, lesions, lacerations, ecchymosis, bleeding Speculum exam: Present: cervical discharge, other (welder metal fab Jenni RN present on exam). Absent: erythema, vaginal discharge, vaginal bleeding, foreign body, tissue, laceration Bi-manual exam: Present: normal bi-manual exam, other (welder metal fab Jenni RN present on exam). Absent: cervical motion tendernes, adnexal tenderness, adnexal mass, uterine enlargement, uterine tenderness - Extremities Exam Extremities exam: Present: normal inspection, full ROM - Back Exam Back exam: Present: normal inspection, full ROM. Absent: tenderness, CVA tenderness (R), CVA tenderness (L), muscle spasm, paraspinal tenderness, vertebral tenderness, rash noted - Neurological Exam Neurological exam: Present: alert, oriented X3 - Psychiatric Psychiatric exam: Present: normal affect, normal mood - Skin Skin exam: Present: warm, dry, intact, normal color. Absent: rash ED Course Vital Signs 11/22/18 13:32 Temperature 98.1 F Pulse Rate 87 Respiratory 16 Rate Blood Pressure 117/43 O2 Sat by Pulse 9 L Oximetry - Reevaluation(s) Reevaluation #1: 11/22/18 16:34 Patient is speaking in full sentences with no signs of distress noted. ED Medical Decision Making - Medical Decision Making This is a 31-year-old female that presents with trichomonas, possible STD and UTI. Patient is stable was examined by me. There is no abdominal tenderness. No pelvic pain. UA obtained. Wet prep obtained. Gonorrhea chlamydia swab pending. Patient was instructed to return in 2 days for GC results. Patient wanted empirical treatment so patient received 1 g Rocephin and 1 g of azithromycin by mouth. Patient was instructed to Follow-up with a primary care doctor in 3-5 days or if symptoms worsen and continue return to emergency room as soon as possible. At time of discharge, the patient does not seem toxic or ill in appearance. No acute signs of distress noted. Patient agrees to discharge treatment plan of care. No further questions noted by the patient. Critical care attestation.: If time is entered above; I have spent that time in minutes in the direct care of this critically ill patient, excluding procedure time. ED Disposition Clinical Impression: Possible exposure to STD, Trichomonas contact UTI (urinary tract infection) Qualifiers: Urinary tract infection type: acute cystitis Hematuria presence: without hematuria Qualified Code(s): N30.00 - Acute cystitis without hematuria Disposition: - TO HOME OR SELFCARE Is pt being admited?: No Does the pt Need Aspirin: No Condition: Stable Instructions: Safe Sex (ED), Trichomoniasis (ED), Metronidazole (By mouth) Additional Instructions: Follow-up with a primary care doctor in 3-5 days or if symptoms worsen and continue return to emergency room as soon as possible. Return in 3-5 days a days for gonorrhea chlamydia results. Do not consume any alcohol while taking antibiotics. Prescriptions: Sulfamethoxazole/Trimethoprim [Bactrim DS TAB] 1 each PO BID #14 tablet metroNIDAZOLE [Flagyl] 500 mg PO Q8HR #14 tablet Referrals: SULEMA DODGE [Other] - 3-5 Days PRIMARY CARE, [Referring] - 3-5 Days YAYA IRVIN MD [Staff Physician] - 3-5 Days [facility] [Outside] - 3-5 Days [facility] [Outside] - 3-5 Days Forms: Work/School Release Form(ED)
[2018-11-22 16:59] VITALS: BP 117/42
== END 2018-11-22 17:03 | disposition home or self-care (01) ==
LOC: ED 12:23
DX: N39.0 Urinary tract infection, site not specified (principal); D64.9 Anemia, unspecified; Z20.2 Contact with and (suspected) exposure to infections with a predominantly sexual mode of transmission
CPT/HCPCS: 81001; 81025; 87210; 87591; 96372; 99283; J0696

== ENCOUNTER 2018-12-27 13:52 | Emergency (ER) | payer SELFPAY ==
[2018-12-27 14:28] VITALS: BP 117/74
[2018-12-27] MEDS ORDERED: BICILLIN L-A IM ONE (14:28)
[2018-12-27] MEDS ORDERED: DECADRON IM ONE (14:28)
[2018-12-27] MEDS ORDERED: IBUPROFEN PO ONE (14:29)
--- NOTE | 2018-12-27 14:29 | Emergency Department Report ---
Minor Respiratory - HPI Chief Complaint: Sore Throat Stated Complaint: SORE THROAT Time Seen by Provider: 12/27/18 14:28 Duration: 3 Days Pain Location: Throat Severity: mild Minor Respiratory: Yes Sore Throat, Yes Able to Tolerate Fluids, No Rhinorrhea, No Ear Pain, No Cough, No Sick Contacts, No Hemoptysis, No Chest Pain, No Shortness of Breath, No Fever Other History: 3 day history of sore throat. abc normal. taking po. controlling secretions. nothing makes better. swallowing makes worse. no fever. no meds at home. no ear pain, no dental pain, no cough. Did not see PCP ED Review of Systems ROS: Stated complaint: SORE THROAT Other details as noted in HPI Comment: All other systems reviewed and negative Constitutional: see HPI. denies: chills, fever Eyes: denies: eye pain ENT: as per HPI, throat pain Respiratory: see HPI. denies: cough Cardiovascular: denies: chest pain, palpitations Endocrine: denies: excessive sweating Gastrointestinal: denies: abdominal pain ED Past Medical Hx - Past Medical History Previous Medical History?: Yes Additional medical history: anemic, PUD - Surgical History Past Surgical History?: No - Family History Family history: no significant - Social History Smoking Status: Never Smoker Substance Use Type: None - Medications Home Medications: Home Medications Medication Instructions Recorded Confirmed Last Taken Type Acetaminophen [Acetaminophen TAB] 1,000 mg PO Q6HR PRN #25 tablet 12/27/18 Unknown Rx Amoxicillin [Trimox CAP] 500 mg PO BID #20 capsule 12/27/18 Unknown Rx predniSONE [Deltasone] 20 mg PO DAILY #5 tablet 12/27/18 Unknown Rx Ibuprofen [Motrin 800 MG tab] 800 mg PO Q8HR PRN #25 tablet 12/31/18 Unknown Rx Nitrofurantoin [place]/M-Cryst 100 mg PO Q12HR #10 capsule 12/31/18 Unknown Rx [Macrobid CAP] Phenazopyridine [Pyridium] 100 mg PO TID #10 tab 12/31/18 Unknown Rx Minor Respiratory Exam - Exam General: Vital signs noted. No distress. Alert and acting appropriately. HEENT: Yes Pharyngeal Erythema, Yes Pharyngeal Exudates, Yes Moist Mucous Membranes, No Rhinorrhea, No Conjuctival Injection, No Frontal Tenderness, No Maxillary Tenderness Ear: Neither TM Bulge, Neither TM Erythema, Neither EAC Pain, Neither EAC Discharge Neck: Yes Supple, No Adenopathy Lungs: Yes Good Air Exchange, No Wheezes, No Ronchi Heart: Yes Regular, No Murmur Abdomen: Yes Normal Bowel Sounds, No Tenderness, No Peritoneal Signs Skin: No Rash, No Edema Neurologic: Alert and oriented, no deficits. Musculoskeletal: Unremarkable. ED Course Vital Signs 12/27/18 14:26 Temperature 99.2 F Pulse Rate 86 Respiratory 18 Rate Blood Pressure 117/74 O2 Sat by Pulse 99 Oximetry ED Medical Decision Making - Medical Decision Making exudates bilateral tonsils no abscess abc intact taking po controlling secretions VSS ambulatory non toxic Vital Signs 12/27/18 12/27/18 12/27/18 14:26 14:51 15:08 Temperature 99.2 F Pulse Rate 86 Respiratory 18 17 16 Rate Blood Pressure 117/74 O2 Sat by Pulse 99 Oximetry - Differential Diagnosis ro abscess v pharyngitis Critical care attestation.: If time is entered above; I have spent that time in minutes in the direct care of this critically ill patient, excluding procedure time. ED Disposition Clinical Impression: Pharyngitis Disposition: - TO HOME OR SELFCARE Is pt being admited?: No Does the pt Need Aspirin: No Condition: Stable Instructions: Pharyngitis (ED) Additional Instructions: rest hydrate well with water meds as ordered today diet as tolerated water water water advance as tolerated follow up pcp Monday referral below Prescriptions: Acetaminophen [Acetaminophen TAB] 1,000 mg PO Q6HR PRN #25 tablet PRN Reason: Pain , Severe (7-10) predniSONE [Deltasone] 20 mg PO DAILY #5 tablet Amoxicillin [Trimox CAP] 500 mg PO BID #20 capsule Referrals: [facility] [Outside] - 3-5 Days Forms: Work/School Release Form(ED) Time of Disposition: 14:36
== END 2018-12-27 15:10 | disposition home or self-care (01) ==
LOC: ED 13:52
DX: J02.9 Acute pharyngitis, unspecified (principal); D64.9 Anemia, unspecified
CPT/HCPCS: 96372; 99282; J0561; J1100

== ENCOUNTER 2018-12-31 09:54 | Emergency (ER) | payer SELFPAY ==
[2018-12-31 10:25] VITALS: BP 104/69
[2018-12-31 11:19] LABS: Hematocrit 36.4 % (30.3-42.9); Hemoglobin 11.9 gm/dl (10.1-14.3); Mean Corpuscular HGB Conc 33 % (30-34); Mean Corpuscular Volume 85 fl (79-97); Platelet Count 228 K/mm3 (140-440); Red Blood Count 4.26 M/mm3 (3.65-5.03); Red Cell Distribution Width 15.5 % (13.2-15.2)
[2018-12-31 11:25] LABS: Bacteria,Urine 1+ /HPF (Negative); Bilirubin,Urine NEG (Negative); Blood,Urine LG (Negative); Color,Urine Yellow (Yellow); Mucus,Urine FEW /HPF; Urobilinogen,Urine < 2.0 mg/dL (<2.0)
[2018-12-31 11:27] LABS: RBC,Urine > 182.0 /HPF (0.0-6.0); WBC,Urine > 182.0 /HPF (0.0-6.0)
[2018-12-31 11:28] LABS: HCG Qualitative,Urine Negative (Negative)
[2018-12-31 11:41] LABS: BUN/Creatinine Ratio 17; Blood Urea Nitrogen 10 mg/dL (7-17); Calcium 8.8 mg/dL (8.4-10.2); Hemolysis Index 16
--- NOTE | 2018-12-31 12:05 | Emergency Department Report ---
ED Female HPI - General Chief complaint: Vaginal Bleeding Stated complaint: PELVIC PAIN Time Seen by Provider: 12/31/18 10:57 Source: patient Mode of arrival: Ambulatory Limitations: No Limitations - History of Present Illness Initial comments: This is a 23-year-old female who presents today complaining of pelvic pain with hematuria times 2 days. Patient says last menstrual period was December 01 something which she is unsure of the date. She also admits dysuria and burning with urination. She denies vaginal bleeding, vaginal discharge, vaginal it rosario,abdominal pain, fevers chills nausea or vomiting. MD Complaint: dysuria, pelvic pain Severity scale (0 -10): 5 Quality: cramping Worsens with: urination Are you Now?: No - Related Data Previous Rx's Medication Instructions Recorded Last Taken Type Acetaminophen [Acetaminophen TAB] 1,000 mg PO Q6HR PRN #25 tablet 12/27/18 Unknown Rx Amoxicillin [Trimox CAP] 500 mg PO BID #20 capsule 12/27/18 Unknown Rx predniSONE [Deltasone] 20 mg PO DAILY #5 tablet 12/27/18 Unknown Rx Ibuprofen [Motrin 800 MG tab] 800 mg PO Q8HR PRN #25 tablet 12/31/18 Unknown Rx Nitrofurantoin [place]/M-Cryst 100 mg PO Q12HR #10 capsule 12/31/18 Unknown Rx [Macrobid CAP] Phenazopyridine [Pyridium] 100 mg PO TID #10 tab 12/31/18 Unknown Rx Allergies Allergy/AdvReac Type Severity Reaction Status Date / Time No Known Allergies Allergy Verified 11/22/18 12:26 ED Review of Systems ROS: Stated complaint: PELVIC PAIN Other details as noted in HPI Comment: All other systems reviewed and negative ED Past Medical Hx - Past Medical History Previous Medical History?: Yes Additional medical history: anemic, PUD, stomach ulcers - Surgical History Past Surgical History?: No - Social History Smoking Status: Former Smoker Substance Use Type: None - Medications Home Medications: Home Medications Medication Instructions Recorded Confirmed Last Taken Type Acetaminophen [Acetaminophen TAB] 1,000 mg PO Q6HR PRN #25 tablet 12/27/18 Unknown Rx Amoxicillin [Trimox CAP] 500 mg PO BID #20 capsule 12/27/18 Unknown Rx predniSONE [Deltasone] 20 mg PO DAILY #5 tablet 12/27/18 Unknown Rx Ibuprofen [Motrin 800 MG tab] 800 mg PO Q8HR PRN #25 tablet 12/31/18 Unknown Rx Nitrofurantoin [place]/M-Cryst 100 mg PO Q12HR #10 capsule 12/31/18 Unknown Rx [Macrobid CAP] Phenazopyridine [Pyridium] 100 mg PO TID #10 tab 12/31/18 Unknown Rx ED Physical Exam - General Limitations: No Limitations General appearance: alert, in no apparent distress - Head Head exam: Present: atraumatic, normocephalic - Eye Eye exam: Present: normal appearance - ENT ENT exam: Present: mucous membranes moist - Neck Neck exam: Present: normal inspection - Respiratory Respiratory exam: Present: normal lung sounds bilaterally. Absent: respiratory distress - Cardiovascular Cardiovascular Exam: Present: regular rate, normal rhythm. Absent: systolic murmur, diastolic murmur, rubs, gallop - GI/Abdominal GI/Abdominal exam: Present: soft, normal bowel sounds. Absent: distended, tenderness, guarding - External exam: Present: normal external exam - Extremities Exam Extremities exam: Present: normal inspection - Back Exam Back exam: Present: normal inspection - Neurological Exam Neurological exam: Present: alert, oriented X3 - Psychiatric Psychiatric exam: Present: normal affect, normal mood - Skin Skin exam: Present: warm, dry, intact, normal color. Absent: rash ED Course Vital Signs 12/31/18 10:22 Temperature 98.6 F Pulse Rate 70 Respiratory 16 Rate Blood Pressure 104/69 O2 Sat by Pulse 100 Oximetry ED Medical Decision Making - Lab Data Result diagrams: 12/31/18 11:13 12/31/18 11:13 - Medical Decision Making 23-year-old female presents with UTI/acute pyelonephritis. CBC, elevated wbc Negative test. urinalysis positive for WBCs, She received Rocephin and azithromycin in the ED today for UTI/pilonidal coverage Patient also coverage for vaginitis. Patient will be going home on prescriptions and instructions to follow-up with [facility] or primary care doctor. Vital signs are normal patient is in no acute distress Critical care attestation.: If time is entered above; I have spent that time in minutes in the direct care of this critically ill patient, excluding procedure time. ED Disposition Clinical Impression: UTI (urinary tract infection), Dysuria Disposition: - TO HOME OR SELFCARE Is pt being admited?: No Does the pt Need Aspirin: No Condition: Stable Instructions: Urinary Tract Infection in Women (ED), Acute Pyelonephritis (ED) Additional Instructions: Make sure to follow up with the primary care physician as discussed. Take all your medications as you've been prescribed. If you have any worsening symptoms or develop new symptoms please return to ED immediately. Prescriptions: Nitrofurantoin Kay/M-Cryst [Macrobid CAP] 100 mg PO Q12HR #10 capsule Ibuprofen [Motrin 800 MG tab] 800 mg PO Q8HR PRN #25 tablet PRN Reason: Pain , Severe (7-10) Phenazopyridine [Pyridium] 100 mg PO TID #10 tab Referrals: OLIVER NG MD [Primary Care Provider] - 3-5 Days Forms: Work/School Release Form(ED) Time of Disposition: 12:14
[2018-12-31] MEDS ORDERED: ROCEPHIN IM ONE (12:10)
[2018-12-31] MEDS ORDERED: XYLOCAINE 1% MPF 5 mL INFILTRATI ONE (12:10)
[2018-12-31] MEDS ORDERED: ZITHROMAX PO ONE (12:12)
[2018-12-31] MEDS ORDERED: ZOFRAN ODT ONE (13:22)
[2018-12-31] MEDS ORDERED: ZOFRAN ODT PO ONE (13:23)
[2018-12-31 14:10] LABS: Anisocytosis 1+; Basophils % (Manual) 0 % (0.0-1.8); Eosinophils % (Manual) 0 % (0.0-4.3); Large Platelets 1+; Platelet Estimate Consistent w Auto; Total Cells Counted 100
== END 2018-12-31 13:34 | disposition home or self-care (01) ==
LOC: ED 09:54
DX: N39.0 Urinary tract infection, site not specified (principal); K27.9 Peptic ulcer, site unspecified, unspecified as acute or chronic, without hemorrhage or perforation; Z87.891 Personal history of nicotine dependence; Z86.2 Personal history of diseases of the blood and blood-forming organs and certain disorders involving the immune mechanism
CPT/HCPCS: 36415; 80048; 81001; 81025; 85007; 85025; 96372; 99283; J0696; Q0162

== ENCOUNTER 2019-02-05 17:15 | Emergency (ER) | payer SELFPAY ==
--- NOTE | 2019-02-05 17:27 | Emergency Department Report ---
Eye Injury/Foreign Body - HPI Duration: 5 Days Eye Location: Bilateral Severity: Mild Tetanus Status: Up to Date Eye Symptoms: Eye Pain: No, Blurred Vision: No, Eye Redness: Yes, Grinding/Hammering Metal: No, Used Eye Protection: No, Contact Lens Use: No, Recalls Injury: No, Photophobia: No Other History: complains of bilateral eye redness. kids with same earlier in week. no trauma. no contacts. nothing done at home to improve. vision normal ED Review of Systems ROS: Stated complaint: EYES RED/EAR/THROAT PAIN Other details as noted in HPI Comment: All other systems reviewed and negative ED Past Medical Hx - Past Medical History Previous Medical History?: No Additional medical history: anemic, PUD, stomach ulcers - Surgical History Past Surgical History?: No - Family History Family history: no significant - Social History Smoking Status: Former Smoker - Medications Home Medications: Home Medications Medication Instructions Recorded Confirmed Last Taken Type Acetaminophen [Acetaminophen TAB] 1,000 mg PO Q6HR PRN #25 tablet 12/27/18 Unknown Rx Amoxicillin [Trimox CAP] 500 mg PO BID #20 capsule 12/27/18 Unknown Rx predniSONE [Deltasone] 20 mg PO DAILY #5 tablet 12/27/18 Unknown Rx Ibuprofen [Motrin 800 MG tab] 800 mg PO Q8HR PRN #25 tablet 12/31/18 Unknown Rx Nitrofurantoin [place]/M-Cryst 100 mg PO Q12HR #10 capsule 12/31/18 Unknown Rx [Macrobid CAP] Phenazopyridine [Pyridium] 100 mg PO TID #10 tab 12/31/18 Unknown Rx Cetirizine HCl [ZyrTEC] 10 mg PO DAILY #30 capsule 02/05/19 Unknown Rx Cetirizine HCl [ZyrTEC] 10 mg PO DAILY #30 capsule 02/05/19 Unknown Rx Fluticasone [Flonase] 1 spray NS QDAY #1 bottle 02/05/19 Unknown Rx Polymyxin B Sulf/Trimethoprim 2 drops OD Q4H #1 drops 02/05/19 Unknown Rx [Polytrim Eye Drops] predniSONE [Deltasone] 20 mg PO DAILY #5 tablet 02/05/19 Unknown Rx Eye Injury Exam - Exam General: Vital signs noted. No distress. Alert and acting appropriately. perrl eom intact no pain with light no fb or trauma reported no systemic symptoms ED Medical Decision Making - Medical Decision Making SON WITH SAME A FEW WEEKS AGO NO CONTACTS NO TRAUMA NKDA RX NONE PMH ULCERS PSH NONE VS normal- RN ask to document dc home with dc plan of care Critical care attestation.: If time is entered above; I have spent that time in minutes in the direct care of this critically ill patient, excluding procedure time. ED Disposition Clinical Impression: Conjunctivitis Disposition: DC-01 TO HOME OR SELFCARE Is pt being admited?: No Does the pt Need Aspirin: No Condition: Stable Instructions: Conjunctivitis (ED) Additional Instructions: COOL COMPRESSES MEDS ORDERED Prescriptions: predniSONE [Deltasone] 20 mg PO DAILY #5 tablet Fluticasone [Flonase] 1 spray NS QDAY #1 bottle Polymyxin B Sulf/Trimethoprim [Polytrim Eye Drops] 2 drops OD Q4H #1 drops Cetirizine HCl [ZyrTEC] 10 mg PO DAILY #30 capsule Cetirizine HCl [ZyrTEC] 10 mg PO DAILY #30 capsule Referrals: AMOL JAMES MD [Staff Physician] - 3-5 Days Time of Disposition: 17:24
== END 2019-02-05 18:14 | disposition home or self-care (01) ==
LOC: ED 17:15
DX: H10.9 Unspecified conjunctivitis (principal); Z86.2 Personal history of diseases of the blood and blood-forming organs and certain disorders involving the immune mechanism; Z87.891 Personal history of nicotine dependence
CPT/HCPCS: 99282

== ENCOUNTER 2019-03-29 20:06 | Emergency (ER) | payer SELFPAY ==
--- NOTE | 2019-03-29 20:22 | Event Note ---
ED Screening Note ED Screening Note: lmp last month around .... came late I hope I am not control removed when in Detention; last year dysuria nausea chills/fever worried for std; pos dc pmh ulcers rx none cig no drugs none etoh occ This initial assessment/diagnostic orders/clinical plan/treatment(s) is/are subject to change based on patients health status, clinical progression and re- assessment by fellow clinical providers in the ED. Further treatment and workup at subsequent clinical providers discretion. Patient/guardian urged not to elope from the ED as their condition may be serious if not clinically assessed and managed. Initial orders include: ua/preg
[2019-03-29 20:23] VITALS: BP 113/72
[2019-03-29 22:11] LABS: HCG Qualitative,Urine Negative (Negative)
[2019-03-29 22:15] LABS: Bacteria,Urine 1+ /HPF (Negative); Bilirubin,Urine NEG (Negative); Blood,Urine NEG (Negative); Color,Urine Yellow (Yellow); Mucus,Urine FEW /HPF; Protein,Urine <15 mg/dL mg/dL (Negative); Urobilinogen,Urine < 2.0 mg/dL (<2.0)
--- NOTE | 2019-03-29 23:12 | Emergency Department Report ---
ED Female HPI - General Chief complaint: Urogenital-Female Stated complaint: ABDOMINAL PAIN/PAIN WHEN URINE Time Seen by Provider: 03/29/19 20:20 Source: patient Mode of arrival: Ambulatory Limitations: No Limitations - History of Present Illness Initial comments: Patient is a 23-year-old female who presents to emergency room with complaints of dysuria that began a week ago. pt has associated nausea and suprapubic discomfort. She denies any vomiting, diarrhea, fever. she does not report any vaginal discharge. Patient states she tried to take something [id number] for a UTI but did not help much. last menstrual cycle was March 09. She states her cycle lasted approximately 3 days and she typically has a cycle for 5-6 days. Patient was concerned that she was because her cycle did not last as long. past medical history of peptic ulcer disease. Denies any allergies to medications. - Related Data Previous Rx's Medication Instructions Recorded Last Taken Type Acetaminophen [Acetaminophen TAB] 1,000 mg PO Q6HR PRN #25 tablet 12/27/18 Unknown Rx Amoxicillin [Trimox CAP] 500 mg PO BID #20 capsule 12/27/18 Unknown Rx predniSONE [Deltasone] 20 mg PO DAILY #5 tablet 12/27/18 Unknown Rx Ibuprofen [Motrin 800 MG tab] 800 mg PO Q8HR PRN #25 tablet 12/31/18 Unknown Rx Nitrofurantoin [place]/M-Cryst 100 mg PO Q12HR #10 capsule 12/31/18 Unknown Rx [Macrobid CAP] Phenazopyridine [Pyridium] 100 mg PO TID #10 tab 12/31/18 Unknown Rx Cetirizine HCl [ZyrTEC] 10 mg PO DAILY #30 capsule 02/05/19 Unknown Rx Cetirizine HCl [ZyrTEC] 10 mg PO DAILY #30 capsule 02/05/19 Unknown Rx Fluticasone [Flonase] 1 spray NS QDAY #1 bottle 02/05/19 Unknown Rx Polymyxin B Sulf/Trimethoprim 2 drops OD Q4H #1 drops 02/05/19 Unknown Rx [Polytrim Eye Drops] predniSONE [Deltasone] 20 mg PO DAILY #5 tablet 02/05/19 Unknown Rx Ondansetron [Zofran Odt] 4 mg PO Q8HR PRN #14 tab.rapdis 03/29/19 Unknown Rx cephALEXin [Keflex] 500 mg PO BID 7 Days #14 cap 03/29/19 Unknown Rx Allergies Allergy/AdvReac Type Severity Reaction Status Date / Time No Known Allergies Allergy Verified 11/22/18 12:26 ED Review of Systems ROS: Stated complaint: ABDOMINAL PAIN/PAIN WHEN URINE Other details as noted in HPI Comment: All other systems reviewed and negative ED Past Medical Hx - Past Medical History Previous Medical History?: No Additional medical history: anemic, PUD, stomach ulcers - Surgical History Past Surgical History?: No - Social History Smoking Status: Never Smoker Substance Use Type: None - Medications Home Medications: Home Medications Medication Instructions Recorded Confirmed Last Taken Type Acetaminophen [Acetaminophen TAB] 1,000 mg PO Q6HR PRN #25 tablet 12/27/18 Unknown Rx Amoxicillin [Trimox CAP] 500 mg PO BID #20 capsule 12/27/18 Unknown Rx predniSONE [Deltasone] 20 mg PO DAILY #5 tablet 12/27/18 Unknown Rx Ibuprofen [Motrin 800 MG tab] 800 mg PO Q8HR PRN #25 tablet 12/31/18 Unknown Rx Nitrofurantoin [place]/M-Cryst 100 mg PO Q12HR #10 capsule 12/31/18 Unknown Rx [Macrobid CAP] Phenazopyridine [Pyridium] 100 mg PO TID #10 tab 12/31/18 Unknown Rx Cetirizine HCl [ZyrTEC] 10 mg PO DAILY #30 capsule 02/05/19 Unknown Rx Cetirizine HCl [ZyrTEC] 10 mg PO DAILY #30 capsule 02/05/19 Unknown Rx Fluticasone [Flonase] 1 spray NS QDAY #1 bottle 02/05/19 Unknown Rx Polymyxin B Sulf/Trimethoprim 2 drops OD Q4H #1 drops 02/05/19 Unknown Rx [Polytrim Eye Drops] predniSONE [Deltasone] 20 mg PO DAILY #5 tablet 02/05/19 Unknown Rx Ondansetron [Zofran Odt] 4 mg PO Q8HR PRN #14 tab.rapdis 03/29/19 Unknown Rx cephALEXin [Keflex] 500 mg PO BID 7 Days #14 cap 03/29/19 Unknown Rx ED Physical Exam - General Limitations: No Limitations General appearance: alert, in no apparent distress - Head Head exam: Present: atraumatic, normocephalic - Eye Eye exam: Present: normal appearance - ENT ENT exam: Present: mucous membranes moist - Respiratory Respiratory exam: Present: normal lung sounds bilaterally. Absent: respiratory distress, wheezes, rales, rhonchi, stridor, accessory muscle use, decreased breath sounds, prolonged expiratory - Cardiovascular Cardiovascular Exam: Present: regular rate, normal rhythm, normal heart sounds. Absent: systolic murmur, diastolic murmur, rubs, gallop - GI/Abdominal GI/Abdominal exam: Present: soft, normal bowel sounds. Absent: distended, tenderness, guarding, rebound, rigid - Back Exam Back exam: Absent: CVA tenderness (R), CVA tenderness (L) - Neurological Exam Neurological exam: Present: alert, oriented X3 - Psychiatric Psychiatric exam: Present: normal affect, normal mood - Skin Skin exam: Present: warm, dry, intact ED Course Vital Signs 03/29/19 03/29/19 20:21 23:54 Temperature 71 F L 98.6 F Pulse Rate 71 Respiratory 18 Rate Blood Pressure 113/72 O2 Sat by Pulse 100 Oximetry ED Medical Decision Making - Medical Decision Making Patient is a 23-year-old female who presents to emergency room with complaints of dysuria that began a week ago. pt has associated nausea and suprapubic discomfort. She denies any vomiting, diarrhea, fever. she does not report any vaginal discharge. Patient states she tried to take something [id number] for a UTI but did not help much. last menstrual cycle was March 09. She states her cycle lasted approximately 3 days and she typically has a cycle for 5-6 day s. Patient was concerned that she was because her cycle did not last as long. past medical history of peptic ulcer disease. Denies any allergies to medications. vitals are normal, temperature was originally entered in error and the patients correct temperature was inputed. no abd tenderness or CVAT on exam. UA shows evidence of UTI. pt given prescription for keflex and zofran. advised to take medication as prescribed to completion. May use Zofran as needed for nausea. Drink plenty of water over the next several days. Please follow-up with an [facility] in the next 2-3 days. Return to the emergency room for any new or worsening symptoms. Critical care attestation.: If time is entered above; I have spent that time in minutes in the direct care of this critically ill patient, excluding procedure time. ED Disposition Clinical Impression: Dysuria, Suprapubic abdominal pain UTI (urinary tract infection) Qualifiers: Urinary tract infection type: acute cystitis Hematuria presence: without hematuria Qualified Code(s): N30.00 - Acute cystitis without hematuria Disposition: TO HOME OR SELFCARE Is pt being admited?: No Does the pt Need Aspirin: No Condition: Stable Instructions: Urinary Tract Infection in Women (ED) Additional Instructions: Take medication as prescribed to completion. May use Zofran as needed for nausea. Drink plenty of water over the next several days. Please follow-up with an [facility] in the next 2-3 days. Return to the emergency room for any new or worsening symptoms. Prescriptions: cephALEXin [Keflex] 500 mg PO BID 7 Days #14 cap Ondansetron [Zofran Odt] 4 mg PO Q8HR PRN #14 tab.rapdis PRN Reason: Nausea Referrals: [facility] [Primary Care Provider] - 2-3 Days [facility] [Provider Group] - 2-3 Days [facility] [Provider Group] - 2-3 Days Time of Disposition: 23:11 Print Language: CZECH
== END 2019-03-29 23:58 | disposition home or self-care (01) ==
LOC: ED 20:06
DX: N39.0 Urinary tract infection, site not specified (principal); Z86.2 Personal history of diseases of the blood and blood-forming organs and certain disorders involving the immune mechanism; Z79.899 Other long term (current) drug therapy
CPT/HCPCS: 81001; 81025; 87076; 87086; 87186; 99283

== ENCOUNTER 2019-06-04 23:45 | Emergency (ER) | payer OTHER ==
[2019-06-05 00:24] VITALS: BP 115/62
[2019-06-05 01:49] LABS: HCG Qualitative,Urine Negative (Negative)
== END 2019-06-05 02:20 | disposition left against medical advice (07) ==
LOC: ED 23:45
DX: M79.644 Pain in right finger(s) (principal); Z53.21 Procedure and treatment not carried out due to patient leaving prior to being seen by health care provider
CPT/HCPCS: 81025

== ENCOUNTER 2019-06-10 17:22 | Emergency (ER) | payer OTHER ==
--- NOTE | 2019-06-10 18:39 | Emergency Department Report ---
Blank Doc - Documentation Documentation: 23-year-old female that presents with chest pain and SOB. This initial assessment/diagnostic orders/clinical plan/treatment(s) is/are subject to change based on patient's health status, clinical progression and re- assessment by fellow clinical providers in the ED. Further treatment and workup at subsequent clinical providers discretion. Patient/guardians urged not to elope from the ED as their condition may be serious if not clinically assessed and managed. Initial orders include: 1- Patient sent to [facility] for further evaluation and treatment 2- CXR 3- EKG
--- NOTE | 2019-06-10 19:49 | XRay Report ---
CHEST 2 VIEWS INDICATION / CLINICAL INFORMATION: Left chest pain radiating into the left arm and elbow. Fever, difficulty breathing and nausea. COMPARISON: None available. FINDINGS: SUPPORT DEVICES: None. HEART / MEDIASTINUM: The heart size and pulmonary vasculature are normal. LUNGS / PLEURA: No significant pulmonary or pleural abnormality. No pneumothorax. ADDITIONAL FINDINGS: No significant additional findings. IMPRESSION: No acute findings. Signer Name: Surya Diaz MD Signed: 06/10/2019 7:45 PM Workstation Name: [id number]
[2019-06-10] MEDS ORDERED: LIDOCAINE VISCOUS 2% 15 ML ORAL LIQD PO ONE (21:56)
[2019-06-10] MEDS ORDERED: ONDANSETRON 4 MG ODT TAB PO ONE (21:56)
[2019-06-10] MEDS ORDERED: ALUM-MAG HYDROXIDE-SIMETHICONE 200-200-20MG/5ML ORAL LIQD 30 ML PO ONE (21:58)
--- NOTE | 2019-06-10 22:04 | Emergency Department Report ---
ED General Adult HPI - General Chief complaint: Chest Pain Stated complaint: CHEST PAIN Time Seen by Provider: 06/10/19 18:38 Source: patient Mode of arrival: Stretcher Limitations: No Limitations - History of Present Illness Initial comments: Ms. Bharathi Bright is a 23-year-old -[place] who presents with chest pain shortness of breath 2 days states pain radiates to her left arm and back. Patient denies history of asthma or bronchitis,There is no previous PE or DVT. Pt is not a smoker and is not using oral control. pt state hx of cp and anxiety. Symptoms at this time are rated at 5/10 , symptoms are exacerbated by movement, breathing. Symptoms are relieved by nothing. There has been nausea and sob. Thre is no vomiting , no cough, no fever , no diaphoresis. Pt is tolerating po intake at this time. Onset/Timin -: days(s) Location: chest Radiation: back Severity scale (0 -10): 5 Quality: sharp Consistency: constant Worsens with: none Associated Symptoms: chest pain, nausea/vomiting, shortness of breath Treatments Prior to Arrival: none - Related Data Previous Rx's Medication Instructions Recorded Last Taken Type Acetaminophen [Acetaminophen TAB] 1,000 mg PO Q6HR PRN #25 tablet 12/27/18 Unknown Rx Amoxicillin [Trimox CAP] 500 mg PO BID #20 capsule 12/27/18 Unknown Rx predniSONE [Deltasone] 20 mg PO DAILY #5 tablet 12/27/18 Unknown Rx Ibuprofen [Motrin 800 MG tab] 800 mg PO Q8HR PRN #25 tablet 12/31/18 Unknown Rx Nitrofurantoin [place]/M-Cryst 100 mg PO Q12HR #10 capsule 12/31/18 Unknown Rx [Macrobid CAP] Phenazopyridine [Pyridium] 100 mg PO TID #10 tab 12/31/18 Unknown Rx Cetirizine HCl [ZyrTEC] 10 mg PO DAILY #30 capsule 02/05/19 Unknown Rx Cetirizine HCl [ZyrTEC] 10 mg PO DAILY #30 capsule 02/05/19 Unknown Rx Fluticasone [Flonase] 1 spray NS QDAY #1 bottle 02/05/19 Unknown Rx Polymyxin B Sulf/Trimethoprim 2 drops OD Q4H #1 drops 02/05/19 Unknown Rx [Polytrim Eye Drops] predniSONE [Deltasone] 20 mg PO DAILY #5 tablet 02/05/19 Unknown Rx Ondansetron [Zofran Odt] 4 mg PO Q8HR PRN #14 tab.rapdis 03/29/19 Unknown Rx cephALEXin [Keflex] 500 mg PO BID 7 Days #14 cap 03/29/19 Unknown Rx Ondansetron [Zofran Odt] 4 mg PO Q8HR PRN #14 tab.rapdis 05/09/19 Unknown Rx Ibuprofen [Motrin 800 MG tab] 800 mg PO Q8HR PRN #30 tablet 06/10/19 Unknown Rx Allergies Allergy/AdvReac Type Severity Reaction Status Date / Time No Known Allergies Allergy Verified 11/22/18 12:26 ED Review of Systems ROS: Stated complaint: CHEST PAIN Other details as noted in HPI Constitutional: denies: chills, fever Eyes: denies: eye pain, eye discharge, vision change ENT: denies: ear pain, throat pain Respiratory: shortness of breath. denies: cough, orthopnea, wheezing Cardiovascular: chest pain Endocrine: no symptoms reported Gastrointestinal: nausea. denies: abdominal pain, vomiting, diarrhea, melena Genitourinary: denies: urgency, dysuria, discharge Musculoskeletal: back pain. denies: joint swelling, arthralgia Skin: denies: rash, lesions Neurological: numbness. denies: headache, weakness, paresthesias, vertigo Psychiatric: anxiety. denies: depression Hematological/Lymphatic: denies: easy bleeding, easy bruising ED Past Medical Hx - Past Medical History Additional medical history: anemic, PUD, stomach ulcers - Surgical History Past Surgical History?: No - Social History Smoking Status: Never Smoker Substance Use Type: None - Medications Home Medications: Home Medications Medication Instructions Recorded Confirmed Last Taken Type Acetaminophen [Acetaminophen TAB] 1,000 mg PO Q6HR PRN #25 tablet 12/27/18 Unknown Rx Amoxicillin [Trimox CAP] 500 mg PO BID #20 capsule 12/27/18 Unknown Rx predniSONE [Deltasone] 20 mg PO DAILY #5 tablet 12/27/18 Unknown Rx Ibuprofen [Motrin 800 MG tab] 800 mg PO Q8HR PRN #25 tablet 12/31/18 Unknown Rx Nitrofurantoin [place]/M-Cryst 100 mg PO Q12HR #10 capsule 12/31/18 Unknown Rx [Macrobid CAP] Phenazopyridine [Pyridium] 100 mg PO TID #10 tab 12/31/18 Unknown Rx Cetirizine HCl [ZyrTEC] 10 mg PO DAILY #30 capsule 02/05/19 Unknown Rx Cetirizine HCl [ZyrTEC] 10 mg PO DAILY #30 capsule 02/05/19 Unknown Rx Fluticasone [Flonase] 1 spray NS QDAY #1 bottle 02/05/19 Unknown Rx Polymyxin B Sulf/Trimethoprim 2 drops OD Q4H #1 drops 02/05/19 Unknown Rx [Polytrim Eye Drops] predniSONE [Deltasone] 20 mg PO DAILY #5 tablet 02/05/19 Unknown Rx Ondansetron [Zofran Odt] 4 mg PO Q8HR PRN #14 tab.rapdis 03/29/19 Unknown Rx cephALEXin [Keflex] 500 mg PO BID 7 Days #14 cap 03/29/19 Unknown Rx Ondansetron [Zofran Odt] 4 mg PO Q8HR PRN #14 tab.rapdis 05/09/19 Unknown Rx Ibuprofen [Motrin 800 MG tab] 800 mg PO Q8HR PRN #30 tablet 06/10/19 Unknown Rx ED Physical Exam - General Limitations: No Limitations General appearance: alert, in no apparent distress - Head Head exam: Present: atraumatic, normocephalic - Eye Eye exam: Present: normal appearance, PERRL, EOMI Pupils: Present: normal accommodation - ENT ENT exam: Present: normal exam, normal orophraynx, mucous membranes moist - Neck Neck exam: Present: normal inspection, full ROM - Respiratory Respiratory exam: Present: normal lung sounds bilaterally. Absent: respiratory distress, wheezes, rales, rhonchi, stridor, chest wall tenderness, prolonged expiratory - Cardiovascular Cardiovascular Exam: Present: regular rate, normal rhythm, normal heart sounds. Absent: systolic murmur, diastolic murmur, rubs, gallop - GI/Abdominal GI/Abdominal exam: Present: soft, normal bowel sounds. Absent: distended, tenderness, guarding, rebound, rigid, bruit, hernia - Rectal Rectal exam: Present: deferred - Extremities Exam Extremities exam: Present: normal inspection - Back Exam Back exam: Present: normal inspection. Absent: full ROM, tenderness, CVA tenderness (R), CVA tenderness (L), muscle spasm, vertebral tenderness, rash noted - Neurological Exam Neurological exam: Present: alert, oriented X3, CN II-XII intact, normal gait - Psychiatric Psychiatric exam: Present: anxious. Absent: manic, homicidal ideation, suicidal ideation - Skin Skin exam: Present: warm, dry, intact, normal color. Absent: rash ED Course Vital Signs 06/10/19 06/10/19 18:37 21:42 Temperature 99.2 F 98.6 F Pulse Rate 82 83 Respiratory 18 18 Rate Blood Pressure 96/47 Blood Pressure 98/61 [Right] O2 Sat by Pulse 99 98 Oximetry ED Medical Decision Making - Lab Data Result diagrams: 06/10/19 22:00 06/10/19 22:00 - EKG Data EKG shows normal: sinus rhythm, axis, intervals, QRS complexes, ST-T waves Rate: normal - EKG Data When compared to previous EKG there are: previous EKG unavailable Interpretation: normal EKG (EKG: NSR , no ST Elevated [place], ekg interp be ed attending. ) - Radiology Data Radiology results: report reviewed, image reviewed Ordering Physician: GAB SIMS NP Date of Service: 06/10/19 Procedure(s): XR chest routine 2V Accession Number(s): [id number] cc: GAB SIMS NP Fluoro Time In Minutes: CHEST 2 VIEWS INDICATION / CLINICAL INFORMATION: Left chest pain radiating into the left arm and elbow. Fever, difficulty breathing and nausea. COMPARISON: None available. FINDINGS: SUPPORT DEVICES: None. HEART / MEDIASTINUM: The heart size and pulmonary vasculature are normal. LUNGS / PLEURA: No significant pulmonary or pleural abnormality. No pneumothorax. ADDITIONAL FINDINGS: No significant additional findings. IMPRESSION: No acute findings. Signer Name: Surya Diaz MD Signed: 06/10/2019 7:45 PM Workstation Name: [id number] Transcribed By: RT Dictated By: Surya Diaz MD Electronically Authenticated By: Surya Diaz MD Signed Date/Time: 06/10/191944 DD/ 43 TD/TT: - Medical Decision Making Chest x-ray is normal no infiltrates no opacities, heart score is 0, MIO score is 0, perc: PE 0, labs are normal. plan: DC to home in stable condition, ibuprofen when necessary pain , follow with PCP in 2-3 days. patient verbalizes agreement and understanding the discharge plan. patient DC to home in stable condition at this time. patient denies chest pain is now 0/10. Critical care attestation.: If time is entered above; I have spent that time in minutes in the direct care of this critically ill patient, excluding procedure time. ED Disposition Clinical Impression: Stress, Chest wall pain Disposition: DC-01 TO HOME OR SELFCARE Is pt being admited?: No Does the pt Need Aspirin: No Condition: Stable Instructions: Chest Pain (ED), Stress (ED) Additional Instructions: follow up with your primary care doctor, take ibuprofen as needed for chest wall pain, Take vacation as planed. return to ed if symptoms worsen or return. Prescriptions: Ibuprofen [Motrin 800 MG tab] 800 mg PO Q8HR PRN #30 tablet PRN Reason: pain Referrals: [facility] [Outside] - 3-5 Days [facility] [Outside] - 3-5 Days Forms: Work/School Release Form(ED) Time of Disposition: 23:37
[2019-06-10 22:17] LABS: Hematocrit 36.2 % (30.3-42.9); Hemoglobin 11.5 gm/dl (10.1-14.3); Mean Corpuscular HGB Conc 32 % (30-34); Mean Corpuscular Volume 84 fl (79-97); Platelet Count 209 K/mm3 (140-440); Red Blood Count 4.29 M/mm3 (3.65-5.03); Red Cell Distribution Width 15.7 % (13.2-15.2)
[2019-06-10 22:28] LABS: INR 0.9 (0.87-1.13)
[2019-06-10 22:35] LABS: Alanine Aminotransferase 19 units/L (7-56); Albumin 4.4 g/dL (3.9-5); BUN/Creatinine Ratio 15; Blood Urea Nitrogen 9 mg/dL (7-17); Calcium 9.5 mg/dL (8.4-10.2); Hemolysis Index 2
[2019-06-11 00:16] VITALS: BP 105/65
== END 2019-06-10 23:50 | disposition home or self-care (01) ==
LOC: ED 17:22
DX: F43.9 Reaction to severe stress, unspecified (principal); R07.89 Other chest pain; F41.9 Anxiety disorder, unspecified; R11.2 Nausea with vomiting, unspecified; Z79.899 Other long term (current) drug therapy
CPT/HCPCS: 36415; 71046; 80053; 83690; 85027; 85379; 85610; 85730; 93005; 93010; 99284; Q0162

== ENCOUNTER 2020-01-10 12:12 | Outpatient (CLI) | payer MEDICAID, OTHER ==
[2020-01-10 12:48] VITALS: BP 115/73
[2020-01-10] MEDS ORDERED: LACTATED RINGERS 1,000 ML IV SCH (13:00)
[2020-01-10 13:39] LABS: Bacteria,Urine 2+ /HPF (Negative); Bilirubin,Urine NEG (Negative); Blood,Urine NEG (Negative); Color,Urine Yellow (Yellow); Mucus,Urine FEW /HPF; Protein,Urine <15 mg/dL mg/dL (Negative); Urobilinogen,Urine < 2.0 mg/dL (<2.0)
[2020-01-10] MEDS ORDERED: FLUCONAZOLE 200 MG TAB PO SCH (16:00)
== END 2020-01-10 16:00 | disposition home or self-care (01) ==
LOC: TRG 12:12 → APU 12:19 → TRG 16:00
PROVIDERS: ATTEND Obstetrics & Gynecology
DX: O26.893 Other specified pregnancy related conditions, third trimester (principal); R10.9 Unspecified abdominal pain; M54.9 Dorsalgia, unspecified; R19.7 Diarrhea, unspecified; O62.9 Abnormality of forces of labor, unspecified; Z3A.35 35 weeks gestation of pregnancy; Z87.891 Personal history of nicotine dependence
CPT/HCPCS: 59025; 81001; 96360; 96361; J7120

== ENCOUNTER 2020-04-01 01:10 | Emergency (ER) | payer OTHER ==
--- NOTE | 2020-04-01 02:13 | XRay Report ---
CHEST 1 VIEW INDICATION / CLINICAL INFORMATION: Chest Pain. COMPARISON: 06/10/2019 FINDINGS: SUPPORT DEVICES: None. HEART / MEDIASTINUM: No significant abnormality. LUNGS / PLEURA: No significant pulmonary or pleural abnormality. No pneumothorax. ADDITIONAL FINDINGS: No significant additional findings. IMPRESSION: 1. No acute findings. No interval change. Signer Name: Sarah Anthony MD Signed: 04/01/2020 2:09 AM Workstation Name: [id number]
[2020-04-01 07:49] VITALS: BP 120/68
--- NOTE | 2020-04-01 08:18 | Emergency Department Report ---
ED General Adult HPI - General Chief complaint: Chest Pain Stated complaint: LEFT ARM/LEFT SHOULDER PAIN, LEFT CHEST PAIN Time Seen by Provider: 04/01/20 08:02 Source: patient Mode of arrival: Ambulatory Limitations: No Limitations - History of Present Illness Initial comments: 24-year-old -[place] female presents to the emergency room complaining of left arm left shoulder and left side of chest pain for about 3 days. Patient reports now she only has left lower arm pain. Patient denies any shortness of breath she denies any chest pain at this time. She is by 6 weeks. She does report she carries her baby which is about 10 pounds on her left arm constantly as she is a right-handed. Patient is taking nothing for her discomfo rt. Patient has no known drug allergies. Onset/Timin -: days(s) Location: chest (Resolved), left, upper extremity Radiation: proximal Severity scale (0 -10): 7 Quality: aching, sharp Consistency: intermittent Improves with: rest Worsens with: other (Palpation) Associated Symptoms: denies other symptoms Treatments Prior to Arrival: none - Related Data Previous Rx's Medication Instructions Recorded Last Taken Type Acetaminophen [Acetaminophen TAB] 1,000 mg PO Q6HR PRN #25 tablet 12/27/18 Unknown Rx Amoxicillin [Trimox CAP] 500 mg PO BID #20 capsule 12/27/18 Unknown Rx predniSONE [Deltasone] 20 mg PO DAILY #5 tablet 12/27/18 Unknown Rx Ibuprofen [Motrin 800 MG tab] 800 mg PO Q8HR PRN #25 tablet 12/31/18 Unknown Rx Nitrofurantoin [place]/M-Cryst 100 mg PO Q12HR #10 capsule 12/31/18 Unknown Rx [Macrobid CAP] Phenazopyridine [Pyridium] 100 mg PO TID #10 tab 12/31/18 Unknown Rx Cetirizine HCl [ZyrTEC] 10 mg PO DAILY #30 capsule 02/05/19 Unknown Rx Cetirizine HCl [ZyrTEC] 10 mg PO DAILY #30 capsule 02/05/19 Unknown Rx Fluticasone [Flonase] 1 spray NS QDAY #1 bottle 02/05/19 Unknown Rx Polymyxin B Sulf/Trimethoprim 2 drops OD Q4H #1 drops 02/05/19 Unknown Rx [Polytrim Eye Drops] predniSONE [Deltasone] 20 mg PO DAILY #5 tablet 02/05/19 Unknown Rx Ondansetron [Zofran Odt] 4 mg PO Q8HR PRN #14 tab.rapdis 03/29/19 Unknown Rx Ondansetron [Zofran Odt] 4 mg PO Q8HR PRN #14 tab.rapdis 05/09/19 Unknown Rx Ibuprofen [Motrin 800 MG tab] 800 mg PO Q8HR PRN #30 tablet 06/10/19 Unknown Rx Ibuprofen [Motrin 800 MG tab] 800 mg PO Q6H PRN #30 tablet 02/08/20 Unknown Rx oxyCODONE /ACETAMINOPHEN [Percocet 1 tab PO Q6H PRN #30 tablet 02/08/20 Unknown Rx 5/325 mg] cephALEXin [Keflex] 500 mg PO BID 5 Days #10 cap 02/27/20 Unknown Rx Allergies Allergy/AdvReac Type Severity Reaction Status Date / Time No Known Allergies Allergy Verified 11/22/18 12:26 ED Review of Systems ROS: Stated complaint: LEFT ARM/LEFT SHOULDER PAIN, LEFT CHEST PAIN Other details as noted in HPI Comment: All other systems reviewed and negative ED Past Medical Hx - Past Medical History Previous Medical History?: Yes Hx Hypertension: No Hx Diabetes: No Hx Deep Vein Thrombosis: No Hx Renal Disease: No Hx Sickle Cell Disease: No Hx Seizures: No Hx Asthma: No Hx COPD: No Hx HIV: No Additional medical history: anemic, PUD, stomach ulcers - Surgical History Past Surgical History?: Yes Additional Surgical History: - Social History Smoking Status: Never Smoker Substance Use Type: None - Medications Home Medications: Home Medications Medication Instructions Recorded Confirmed Last Taken Type Acetaminophen [Acetaminophen TAB] 1,000 mg PO Q6HR PRN #25 tablet 12/27/18 02/07/20 Unknown Rx Amoxicillin [Trimox CAP] 500 mg PO BID #20 capsule 12/27/18 02/07/20 Unknown Rx predniSONE [Deltasone] 20 mg PO DAILY #5 tablet 12/27/18 02/07/20 Unknown Rx Ibuprofen [Motrin 800 MG tab] 800 mg PO Q8HR PRN #25 tablet 12/31/18 02/07/20 Unknown Rx Nitrofurantoin [place]/M-Cryst 100 mg PO Q12HR #10 capsule 12/31/18 02/07/20 Unknown Rx [Macrobid CAP] Phenazopyridine [Pyridium] 100 mg PO TID #10 tab 12/31/18 02/07/20 Unknown Rx Cetirizine HCl [ZyrTEC] 10 mg PO DAILY #30 capsule 02/05/19 02/07/20 Unknown Rx Cetirizine HCl [ZyrTEC] 10 mg PO DAILY #30 capsule 02/05/19 02/07/20 Unknown Rx Fluticasone [Flonase] 1 spray NS QDAY #1 bottle 02/05/19 02/07/20 Unknown Rx Polymyxin B Sulf/Trimethoprim 2 drops OD Q4H #1 drops 02/05/19 02/07/20 Unknown Rx [Polytrim Eye Drops] predniSONE [Deltasone] 20 mg PO DAILY #5 tablet 02/05/19 02/07/20 Unknown Rx Ondansetron [Zofran Odt] 4 mg PO Q8HR PRN #14 tab.rapdis 03/29/19 02/07/20 Un known Rx Ondansetron [Zofran Odt] 4 mg PO Q8HR PRN #14 tab.rapdis 05/09/19 02/07/20 Unknown Rx Ibuprofen [Motrin 800 MG tab] 800 mg PO Q8HR PRN #30 tablet 06/10/19 02/07/20 Unknown Rx Ibuprofen [Motrin 800 MG tab] 800 mg PO Q6H PRN #30 tablet 02/08/20 Unknown Rx oxyCODONE /ACETAMINOPHEN [Percocet 1 tab PO Q6H PRN #30 tablet 02/08/20 Unknown Rx 5/325 mg] cephALEXin [Keflex] 500 mg PO BID 5 Days #10 cap 02/27/20 Unknown Rx ED Physical Exam - General Limitations: No Limitations General appearance: alert, in no apparent distress, other (Sleeping comfortably) - Head Head exam: Present: atraumatic, normocephalic - Eye Eye exam: Present: normal appearance - ENT ENT exam: Present: mucous membranes moist - Neck Neck exam: Present: normal inspection - Respiratory Respiratory exam: Present: normal lung sounds bilaterally. Absent: respiratory distress - Cardiovascular Cardiovascular Exam: Present: regular rate, normal rhythm. Absent: systolic murmur, diastolic murmur, rubs, gallop - GI/Abdominal GI/Abdominal exam: Present: soft, normal bowel sounds - Expanded Upper Extremity Exam Left Shoulder Exam: Present: normal inspection, full ROM. Absent: tenderness Upper Arm exam: Present: normal inspection, full ROM. Absent: tenderness Elbow exam: Present: normal inspection, full ROM. Absent: tenderness Forearm Wrist exam: Present: full ROM, tenderness. Absent: swelling, abrasion, laceration, ecchymosis, deformity Hand Wrist exam: Present: full ROM, tenderness. Absent: swelling Neuro motor exam: Present: wrist extension intact, thumb opposition intact, thumb IP flexion intact, thumb adduction intact, fingers 2-5 abduction intact Neurosensory exam: Present: radial nerve intact, ulnar nerve intact, median nerve intact Vascular: Present: normal capillary refill - Back Exam Back exam: Present: normal inspection - Neurological Exam Neurological exam: Present: alert, oriented X3 - Psychiatric Psychiatric exam: Present: normal affect, normal mood - Skin Skin exam: Present: warm, dry, intact, normal color. Absent: rash ED Course Vital Signs 04/01/20 04/01/20 01:30 07:39 Temperature 98.3 F Pulse Rate 70 67 Respiratory 20 Rate Blood Pressure 112/63 120/68 O2 Sat by Pulse 97 99 Oximetry ED Medical Decision Making - EKG Data EKG shows normal: sinus rhythm Rate: normal - Radiology Data Radiology results: report reviewed [facility] [address] [place] [address] XRay Report Signed Patient: ALISIA MCCORMICK MR# : [id number] : 1995 Acct:[id number] Age/Sex: 24 / F ADM Date: 04/01/20 Loc: ED Attending Dr: Ordering Physician: HANG HARLEY MD Date of Service: 04/01/20 Procedure(s): XR chest 1V ap Accession Number(s): [id number] cc: ED MD CHERRI Fluoro Time In Minutes: CHEST 1 VIEW INDICATION / CLINICAL INFORMATION: Chest Pain. COMPARISON: 06/10/2019 FINDINGS: SUPPORT DEVICES: None. HEART / MEDIASTINUM: No significant abnormality. LUNGS / PLEURA: No significant pulmonary or pleural abnormality. No pneumothorax. ADDITIONAL FINDINGS: No significant additional findings. IMPRESSION: 1. No acute findings. No interval change. Signer Name: Sarah Anthony MD Signed: 04/01/2020 2:09 AM Workstation Name: [id number] Transcribed By: Dictated By: Sarah Anthony MD Electronically Authenticated By: Sarah Anthony MD Signed Date/Time: 04/01/20208 DD/ 7 TD/TT: - Medical Decision Making 24-year-old -[place] female presents to the emergency room complaining of left arm left shoulder and left side of chest pain for about 3 days. Patient reports now she only has left lower arm pain. Patient denies any shortness of breath she denies any chest pain at this time. She is by 6 weeks. She does report she carries her baby which is about 10 pounds on her left arm constantly as she is a right-handed. Patient is taking nothing for her discomfort. Patient has no known drug allergies. Discussed with patient appears that she has a forearm strain from carrying her baby. I discussed with patient she should try taking either ibuprofen or Tylenol and try to switch to her right arm to give her left arm rest. Patient can follow-up with her primary care provider if she has any further concerns Critical care attestation.: If time is entered above; I have spent that time in minutes in the direct care of this critically ill patient, excluding procedure time. ED Disposition Clinical Impression: Strain of forearm, left Disposition: DC-01 TO HOME OR SELFCARE Is pt being admited?: No Does the pt Need Aspirin: No Condition: Stable Instructions: Muscle Strain (ED) Additional Instructions: X-rays were negative for any acute findings of your lungs. EKG is normal. I recommend you taking Tylenol ibuprofen for your forearm muscle strain. Try to switch holding the baby onto the other arm to give that arm a rest. Be sure you are drinking plenty of water. Referrals: [facility] [Primary Care Provider] - 3-5 Days [facility] [Provider Group] - 3-5 Days
== END 2020-04-01 08:26 | disposition home or self-care (01) ==
LOC: ED 01:10
DX: S56.912A Strain of unspecified muscles, fascia and tendons at forearm level, left arm, initial encounter (principal); Z98.890 Other specified postprocedural states; Z79.1 Long term (current) use of non-steroidal anti-inflammatories (NSAID); Z79.2 Long term (current) use of antibiotics; Z79.899 Other long term (current) drug therapy; X58.XXXA Exposure to other specified factors, initial encounter; Y93.89 Activity, other specified; Y92.89 Other specified places as the place of occurrence of the external cause; Y99.8 Other external cause status
CPT/HCPCS: 71045; 93005

== ENCOUNTER 2021-06-07 23:54 | Emergency (ER) | payer OTHER ==
[2021-06-08 00:21] VITALS: BP 113/56
[2021-06-08] MEDS ORDERED: LIDOCAINE-MPF (1%) 10 MG/1 ML VIAL 5 ML INFILTRATI ONE (01:47)
[2021-06-08 02:29] LABS: Bacteria,Urine 1+ /HPF (Negative); Bilirubin,Urine NEG (Negative); Blood,Urine NEG (Negative); Color,Urine Straw (Yellow); Mucus,Urine FEW /HPF; Protein,Urine <15 mg/dL mg/dL (Negative); Urobilinogen,Urine < 2.0 mg/dL (<2.0)
[2021-06-08 02:31] LABS: HCG Qualitative,Urine Negative (Negative)
--- NOTE | 2021-06-08 03:09 | Emergency Department Report ---
ED Female HPI - General Chief complaint: Urogenital-Female Stated complaint: DISCHARGE Source: patient Mode of arrival: Ambulatory Limitations: No Limitations - History of Present Illness Initial comments: Patient is a 25-year-old -[place] female with no past medical history presents to the ED with complaint of acute onset persistent suprapubic pressure, urinary frequency and urgency and vaginal discharge with malodorous smell for the last 1 week. Patient states that she had an unprotected sexual intercourse with an ex boyfriend who later on told her that he had had unprotected sexual intercourse with another individual and may have contracted an STD. Patient states that the symptoms have been persistent in the last 2 days. Patient denies dysuria, vaginal bleeding, low back pain, chest pain, shortness of breath, sore throat, abdominal pain or dyspareunia. MD Complaint: vaginal discharge, pelvic pain (Suprapubic pressure) -: week(s) (1) Location: suprapubic, other (Vaginal) Radiation: non-radiating Severity: moderate Severity scale (0 -10): 4 Quality: dull Consistency: intermittent Improves with: none Worsens with: urination, intercourse Are you Now?: No Last Menstrual Period: 05/26/21 EDC: 03/02/22 Associated Symptoms: vaginal discharge, other (Urinary frequency and urgency). denies: denies other symptoms, vaginal bleeding, abdominal pain, nausea/vomiting, fever/chills, headaches, loss of appetite, dysuria, hematuria, rash, shortness of breath, syncope, weakness - Related Data Sexually active: Yes Previous Rx's Medication Instructions Recorded Last Taken Type Acetaminophen [Acetaminophen TAB] 1,000 mg PO Q6HR PRN #25 tablet 12/27/18 Unknown Rx Amoxicillin [Trimox CAP] 500 mg PO BID #20 capsule 12/27/18 Unknown Rx predniSONE [Deltasone] 20 mg PO DAILY #5 tablet 12/27/18 Unknown Rx Ibuprofen [Motrin 800 MG tab] 800 mg PO Q8HR PRN #25 tablet 12/31/18 Unknown Rx Nitrofurantoin [place]/M-Cryst 100 mg PO Q12HR #10 capsule 12/31/18 Unknown Rx [Macrobid CAP] Phenazopyridine [Pyridium] 100 mg PO TID #10 tab 12/31/18 Unknown Rx Cetirizine HCl [ZyrTEC] 10 mg PO DAILY #30 capsule 06/25/19 Unknown Rx Cetirizine HCl [ZyrTEC] 10 mg PO DAILY #30 capsule 02/05/19 Unknown Rx Fluticasone [Flonase] 1 spray NS QDAY #1 bottle 02/05/19 Unknown Rx Polymyxin B Sulf/Trimethoprim 2 drops OD Q4H #1 drops 02/05/19 Unknown Rx [Polytrim Eye Drops] predniSONE [Deltasone] 20 mg PO DAILY #5 tablet 02/05/19 Unknown Rx Ondansetron [Zofran Odt] 4 mg PO Q8HR PRN #14 tab.rapdis 03/29/19 Unknown Rx Ondansetron [Zofran Odt] 4 mg PO Q8HR PRN #14 tab.rapdis 05/09/19 Unknown Rx Ibuprofen [Motrin 800 MG tab] 800 mg PO Q8HR PRN #30 tablet 06/10/19 Unknown Rx Ibuprofen [Motrin 800 MG tab] 800 mg PO Q6H PRN #30 tablet 02/08/20 Unknown Rx oxyCODONE /ACETAMINOPHEN [Percocet 1 tab PO Q6H PRN #30 tablet 02/08/20 Unknown Rx 5/325 mg] cephALEXin [Keflex] 500 mg PO BID 5 Days #10 cap 02/27/20 Unknown Rx Doxycycline Hyclate 100 mg PO Q12H #28 capsule 06/08/21 Unknown Rx metroNIDAZOLE [Flagyl] 500 mg PO Q12HR #14 tab 06/08/21 Unknown Rx Allergies Allergy/AdvReac Type Severity Reaction Status Date / Time No Known Allergies Allergy Verified 11/22/18 12:26 ED Review of Systems ROS: Stated complaint: DISCHARGE Other details as noted in HPI Constitutional: denies: chills, fever Eyes: denies: eye pain, eye discharge, vision change ENT: denies: ear pain, throat pain Respiratory: denies: cough, shortness of breath, wheezing Cardiovascular: denies: chest pain, palpitations Endocrine: no symptoms reported Gastrointestinal: denies: abdominal pain, nausea, diarrhea Genitourinary: urgency, frequency, discharge. denies: dysuria Musculoskeletal: denies: back pain, joint swelling, arthralgia Skin: denies: rash, lesions Neurological: denies: headache, weakness, paresthesias Psychiatric: denies: anxiety, depression Hematological/Lymphatic: denies: easy bleeding, easy bruising ED Past Medical Hx - Past Medical History Hx Hypertension: No Hx Diabetes: No Hx Deep Vein Thrombosis: No Hx Renal Disease: No Hx Sickle Cell Disease: No Hx Seizures: No Hx Asthma: No Hx COPD: No Hx HIV: No Additional medical history: anemic, PUD, stomach ulcers - Surgical History Past Surgical History?: Yes Additional Surgical History: - Social History Smoking Status: Never Smoker Substance Use Type: None - Medications Home Medications: Home Medications Medication Instructions Recorded Confirmed Last Taken Type Acetaminophen [Acetaminophen TAB] 1,000 mg PO Q6HR PRN #25 tablet 12/27/18 02/07/20 Unknown Rx Amoxicillin [Trimox CAP] 500 mg PO BID #20 capsule 12/27/18 02/07/20 Unknown Rx predniSONE [Deltasone] 20 mg PO DAILY #5 tablet 12/27/18 02/07/20 Unknown Rx Ibuprofen [Motrin 800 MG tab] 800 mg PO Q8HR PRN #25 tablet 12/31/18 02/07/20 Unknown Rx Nitrofurantoin [place]/M-Cryst 100 mg PO Q12HR #10 capsule 12/31/18 02/07/20 Unknown Rx [Macrobid CAP] Phenazopyridine [Pyridium] 100 mg PO TID #10 tab 12/31/18 02/07/20 Unknown Rx Cetirizine HCl [ZyrTEC] 10 mg PO DAILY #30 capsule 02/05/19 02/07/20 Unknown Rx Cetirizine HCl [ZyrTEC] 10 mg PO DAILY #30 capsule 02/05/19 02/07/20 Unknown Rx Fluticasone [Flonase] 1 spray NS QDAY #1 bottle 02/05/19 02/07/20 Unknown Rx Polymyxin B Sulf/Trimethoprim 2 drops OD Q4H #1 drops 02/05/19 02/07/20 Unknown Rx [Polytrim Eye Drops] predniSONE [Deltasone] 20 mg PO DAILY #5 tablet 02/05/19 02/07/20 Unknown Rx Ondansetron [Zofran Odt] 4 mg PO Q8HR PRN #14 tab.rapdis 03/29/19 02/07/20 Unknown Rx Ondansetron [Zofran Odt] 4 mg PO Q8HR PRN #14 tab.rapdis 05/09/19 02/07/20 Unknown Rx Ibuprofen [Motrin 800 MG tab] 800 mg PO Q8HR PRN #30 tablet 06/10/19 02/07/20 Unknown Rx Ibuprofen [Motrin 800 MG tab] 800 mg PO Q6H PRN #30 tablet 02/08/20 Unknown Rx oxyCODONE /ACETAMINOPHEN [Percocet 1 tab PO Q6H PRN #30 tablet 02/08/20 Unknown Rx 5/325 mg] cephALEXin [Keflex] 500 mg PO BID 5 Days #10 cap 02/27/20 Unknown Rx Doxycycline Hyclate 100 mg PO Q12H #28 capsule 06/08/21 Unknown Rx metroNIDAZOLE [Flagyl] 500 mg PO Q12HR #14 tab 06/08/21 Unknown Rx ED Physical Exam - General Limitations: No Limitations General appearance: alert, in no apparent distress - Head Head exam: Present: atraumatic, normocephalic, normal inspection - Eye Eye exam: Present: normal appearance, PERRL, EOMI Pupils: Present: normal accommodation - ENT ENT exam: Present: normal exam, normal orophraynx, mucous membranes moist, TM's normal bilaterally, normal external ear exam - Neck Neck exam: Present: normal inspection, full ROM - Respiratory Respiratory exam: Present: normal lung sounds bilaterally. Absent: respiratory distress, wheezes, rales, rhonchi, chest wall tenderness, accessory muscle use, decreased breath sounds, prolonged expiratory - Cardiovascular Cardiovascular Exam: Present: regular rate, normal rhythm, normal heart sounds. Absent: systolic murmur, diastolic murmur, rubs, gallop - GI/Abdominal GI/Abdominal exam: Present: soft, normal bowel sounds. Absent: tenderness, guarding, rebound, hyperactive bowel sounds - Bi-manual exam: Present: other (Pelvic exam deferred, patient preferred self swab) - Extremities Exam Extremities exam: Present: normal inspection, full ROM, normal capillary refill - Back Exam Back exam: Present: normal inspection, full ROM. Absent: tenderness, CVA tenderness (R), CVA tenderness (L), muscle spasm - Neurological Exam Neurological exam: Present: alert, oriented X3, CN II-XII intact, normal gait, reflexes normal - Psychiatric Psychiatric exam: Present: normal affect, normal mood - Skin Skin exam: Present: warm, dry, intact, normal color. Absent: rash ED Course Vital Signs 06/08/21 00:17 Temperature 98.4 F Pulse Rate 76 Respiratory 18 Rate Blood Pressure 113/56 O2 Sat by Pulse 100 Oximetry ED Medical Decision Making - Medical Decision Making This is a 25-year-old -[place] female with no past medical history presents to the ED with complaint of acute onset persistent suprapubic pressure, urinary frequency and urgency and vaginal discharge with malodorous smell for the last 1 week. Patient states that she had an unprotected sexual intercourse with an ex boyfriend who later on told her that he had had unprotected sexual intercourse with another individual and may have contracted an STD. Patient states that the symptoms have been persistent in the last 2 days. In the ED, patient is alert and oriented x3 and is not in any distress. Urinalysis was unremarkable and wet prep was positive for Gardnerella vaginalis consistent with bacterial vaginosis. Patient was empirically treated for suspected gonorrhea with Rocephin 1 g intramuscular injection. Patient was thereafter discharged home on doxycycline 100 mg with Flagyl 500 mg every 12 hours and advised to follow-up with her [employer] [facility] physician in 7 to 10 days for reevaluation. Patient was also advised to follow-up with the [facility] for further STD testing including HIV and syphilis. Patient was advised return to the ED immediately if symptoms get worse. - Differential Diagnosis bacterial vaginosis; UTI; chlamydia; gonorrhea; PID Critical care attestation.: If time is entered above; I have spent that time in minutes in the direct care of this critically ill patient, excluding procedure time. ED Disposition Clinical Impression: Bacterial vaginosis, Exposure to STD Disposition: 01 HOME / SELF CARE / HOMELESS Is pt being admited?: No Does the pt Need Aspirin: No Condition: Stable Instructions: Bacterial Vaginosis (ED), Bacterial Vaginosis, [id number], Gonorrhea, Preventing Sexually Transmitted Infections, Adult, Chlamydia, Female, Safe Sex Additional Instructions: All lab test results were reviewed and are all nonactionable except for wet prep test that was positive for bacterial vaginosis. Therefore take medications with food, drink plenty of fluids and follow-up with your primary care physician or follow-up with [facility] for further STD testing including HIV and syphilis. Return to the ED immediately if symptoms get worse. Prescriptions: Doxycycline Hyclate 100 mg PO Q12H #28 capsule metroNIDAZOLE [Flagyl] 500 mg PO Q12HR #14 tab Referrals: [facility] [Outside] - 3-5 Days Forms: STI Treatment and Prevention Time of Disposition: 03:39 Print Language: THAI
== END 2021-06-08 04:15 | disposition home or self-care (01) ==
LOC: ED 23:54
DX: N76.0 Acute vaginitis (principal); B96.89 Other specified bacterial agents as the cause of diseases classified elsewhere; Z20.2 Contact with and (suspected) exposure to infections with a predominantly sexual mode of transmission; Z79.899 Other long term (current) drug therapy; Z98.890 Other specified postprocedural states
CPT/HCPCS: 81001; 81025; 87210; 96372; 99283; J0696

== ENCOUNTER 2021-11-22 10:14 | Emergency (ER) | payer OTHER | END 2021-11-22 10:20 | disposition left against medical advice (07) | LOC: ED 10:14 | DX: K08.89 Other specified disorders of teeth and supporting structures (principal); Z53.21 Procedure and treatment not carried out due to patient leaving prior to being seen by health care provider ==